=== PATIENT | female | born 1980 | race Caucasian/White ===

== ENCOUNTER 2016-10-01 15:51 | Emergency (ER) | payer OTHER ==
[~2016-10-01] VITALS: Ht 175.3 cm; Wt 70.5 kg
[~2016-10-01 15:51] MED LIST: CLIN150 PO
[2016-10-01 15:59] VITALS: BP 101/64; PULSE 80; RESP 16; TEMP 98.4; O2SAT 97
--- NOTE | 2016-10-01 17:02 | PD ---
HPI Chief Complaint: Injury Time Seen by Provider: 17:02 Travel History International Travel<30 days: No Contact w/Intl Traveler<30days: No Traveled to known affect area: No History of Present Illness HPI 35-year-old female presents to the emergency department for evaluation of bilateral ankle swelling and pain that started 1 week ago. Patient reports history of IV drug use, but states she is not currently using. She states that she smokes crack cocaine. The patient denies any fevers or chills. No chest pain or shortness of breath. She states she was admitted in April for endocarditis. She states she last used IV drugs in July before going to correction. The patient states that she is homeless. She states that the swelling does improve when she elevates her legs. Patient states she is not currently on any medications. PFSH Past Medical History Hx Anticoagulant Therapy: No (WAS WHEN ADMITTED, NOW RESOLVED.) Bipolar Disorder: Yes Anxiety: Yes Depression: Yes Cancer: No Cardiovascular Problems: Yes (ADMIT FOR ENDOCARDITIS) Chemotherapy: No Cerebrovascular Accident: No Diabetes: No Diminished Hearing: No Endocrine: No Hepatitis: Yes Immune Disorder: No Psychiatric: Yes Respiratory: Yes (SMOKER DAILY, CRACK. ) Immunizations Current: Yes Myocardial Infarction: No Tetanus Vaccination: > 5 Years ?: Not LMP: 3 YEARS Menopausal: No : 4 Para: 3 Miscarriage: 0 : 0 Past Surgical History Surgical History: No Previous Surgery Hysterectomy: No Social History Alcohol Use: No Tobacco Use: Yes (1 PPD) Substance Use: Yes (crack) Allergies-Medications (Allergen,Severity, Reaction): Coded Allergies: Latex (Verified Allergy, Severe, LIGHT RASH, 10/01/16) Naproxen (Verified Allergy, Severe, PT SAYS RAULITO GILLIS - NURSE ASKED 08/19 0845, 10/01/16) Bactrim (Verified Allergy, Intermediate, SWOLLEN LIPS, 10/01/16) Reported Meds & Prescriptions Reported Meds & Active Scripts Active No Active Prescriptions or Reported Medications Review of Systems Except as stated in HPI: all other systems reviewed are Neg Physical Exam Narrative GENERAL: Unkempt female patient, afebrile. SKIN: Focused skin assessment warm/dry. Patient has sores to her face and abdomen. She has an area of erythema to her left dorsal hand with swelling noted. HEAD: Normocephalic. Atraumatic. EYES: No scleral icterus. No injection or drainage. NECK: Supple, trachea midline. No JVD or lymphadenopathy. CARDIOVASCULAR: Regular rate and rhythm without murmurs, gallops, or rubs. Lateral pedal and radial pulses 2+. RESPIRATORY: Breath sounds equal bilaterally. No accessory muscle use. Lungs sounds are clear to auscultation. GASTROINTESTINAL: Abdomen soft, non-tender, nondistended. MUSCULOSKELETAL: No cyanosis, or edema. . Bilateral lower extremity edema 2+. She has full range of motion of her bilateral ankles, but pain with movement. There is no erythema over bilateral ankles. Capillary refill less than 2 seconds to the digits of the bilateral feet. BACK: Nontender without obvious deformity. No CVA tenderness. Data Data Last Documented VS Vital Signs Date Time Temp Pulse Resp B/P Pulse Ox O2 Delivery O2 Flow Rate FiO2 10/01/16 15:59 98.4 80 16 101/64 97 Orders Iv Access Insert/Monitor (10/01/16 16:59) Complete Blood Count With Diff (10/01/16 16:59) Comprehensive Metabolic Panel (10/01/16 16:59) Urinalysis - C+S If Indicated (10/01/16 16:59) Ed Urine Pregnancytest Poc (10/01/16 16:59) B-Type Natriuretic Peptide (10/01/16 16:59) Drug Screen, Random Urine (10/01/16 16:59) Us Leg Venous Doppler Bilat (10/01/16 ) Creatine Kinase (Cpk) (10/01/16 16:59) MDM Medical Decision Making Medical Screen Exam Complete: Yes Emergency Medical Condition: Yes Medical Record Reviewed: Yes Differential Diagnosis Cellulitis versus DVT versus IV drug use versus idiopathic edema versus CHF Narrative Course 35-year-old female history of IV drug use presents to the emergency department for evaluation of bilateral ankle pain and swelling for 1 week. On exam, the patient has sores to her face and abdomen as well as erythema and swelling to the left dorsal hand. She has no erythema to the bilateral ankles, but has 2+ edema in pain with movement. Patient does have track gardiner noted to the bilateral arms. CBC, CMP, BNP, UA, urine drug screen, CK are ordered and pending. Venous Doppler ultrasound of bilateral extremities are ordered and pending. Before labs or imaging could be completed, the patient left AGAINST MEDICAL ADVICE. AMA: The risks of leaving against medical advice without further evaluation treatment were discussed with the patient. These risks include cardiac dysfunction, cardiac dysrhythmia, possible heart attack, possible stroke or . The patient indicated understanding of these risks and appeared to have the capacity to make this decision. Diagnosis Primary Impression: Left against medical advice Additional Impression: Bilateral lower extremity edema Scripts No Active Prescriptions or Reported Meds Disposition: 07 AGAINST MEDICAL ADVICE Xiomara Morris Oct 01, 2016 17:02
== END 2016-10-01 17:25 | disposition left against medical advice (07) ==
LOC: NEPD 15:51
DX: R22.43 Localized swelling, mass and lump, lower limb, bilateral (principal); F17.210 Nicotine dependence, cigarettes, uncomplicated; F14.90 Cocaine use, unspecified, uncomplicated; Z59.0 Homelessness

== ENCOUNTER 2016-10-15 16:55 | Emergency (ER) | payer OTHER ==
[~2016-10-15] VITALS: Ht 175.3 cm; Wt 75.0 kg
[2016-10-15 17:04] VITALS: BP 129/81; PULSE 124; RESP 20; TEMP 98; O2SAT 89
--- NOTE | 2016-10-15 17:41 | PD ---
HPI Chief Complaint: Alcohol/Drug Intoxication Time Seen by Provider: 17:04 Travel History International Travel<30 days: No Contact w/Intl Traveler<30days: No Traveled to known affect area: No History of Present Illness HPI 35-year-old female was brought in by EMS after patient was found unresponsive by a friend. EMS was called. A friend was doing chest compressions when EMS personnel got to the scene. GCS at the scene was 3. Patient has history of IV drug abuse including opiates. Narcan 2 mg IM given at the scene by EMS. Patient regained consciousness subsequently. Patient was transported to the ED for evaluation. Patient states that she has mild aching headache. Patient denies any visual change. Patient denies any neck pain. Patient denies any chest pain or shortness of breath. Patient denies abdominal pain. Patient denies any focal weakness or numbness of extremity. PFSH Past Medical History Hx Anticoagulant Therapy: No (WAS WHEN ADMITTED, NOW RESOLVED.) Bipolar Disorder: Yes Anxiety: Yes Depression: Yes Cancer: No Cardiovascular Problems: Yes (ADMIT FOR ENDOCARDITIS) Chemotherapy: No Cerebrovascular Accident: No Diabetes: No Diminished Hearing: No Endocrine: No Hepatitis: Yes Immune Disorder: No Psychiatric: Yes Respiratory: Yes (SMOKER DAILY, CRACK. ) Immunizations Current: Yes Myocardial Infarction: No Menopausal: No : 4 Para: 3 Miscarriage: 0 : 0 Past Surgical History Hysterectomy: No Social History Alcohol Use: No Tobacco Use: Yes (1 PPD) Substance Use: Yes (crack) Allergies-Medications (Allergen,Severity, Reaction): Coded Allergies: Latex (Verified Allergy, Severe, LIGHT RASH, 10/01/16) Naproxen (Verified Allergy, Severe, PT SAYS RAULITO GILLIS - NURSE ASKED 08/19 0845, 10/01/16) Bactrim (Verified Allergy, Intermediate, SWOLLEN LIPS, 10/01/16) Reported Meds & Prescriptions Reported Meds & Active Scripts Active No Active Prescriptions or Reported Medications Review of Systems General / Constitutional: No: Fever Eyes: No: Visual changes HENT: No: Headaches Cardiovascular: No: Chest Pain or Discomfort Respiratory: No: Shortness of Breath Gastrointestinal: No: Abdominal Pain Genitourinary: No: Dysuria Musculoskeletal: No: Pain Skin: No Rash Neurologic: No: Weakness Psychiatric: No: Depression Endocrine: No: Polydipsia Hematologic/Lymphatic: No: Easy Bruising Physical Exam Narrative GENERAL: Well-nourished, well-developed patient. SKIN: Focused skin assessment warm/dry. HEAD: Normocephalic. EYES: No scleral icterus. No injection or drainage. Pupils 2 mm equal reactive. NECK: Supple, trachea midline. No JVD or lymphadenopathy. No meningismus CARDIOVASCULAR: Regular rate and rhythm without murmurs, gallops, or rubs. RESPIRATORY: Breath sounds equal bilaterally. No accessory muscle use. GASTROINTESTINAL: Abdomen soft, non-tender, nondistended. MUSCULOSKELETAL: No cyanosis, or edema. BACK: Nontender without obvious deformity. No CVA tenderness. Neurologic exam: Patient's awake and alert oriented 3. No obvious focal neurological deficit. Data Data Last Documented VS Vital Signs Date Time Temp Pulse Resp B/P Pulse Ox O2 Delivery O2 Flow Rate FiO2 10/15/16 17:04 98.0 124 20 129/81 89 Orders Electrocardiogram (10/15/16 17:05) Complete Blood Count With Diff (10/15/16 17:05) Comprehensive Metabolic Panel (10/15/16 17:05) Creatine Kinase (Cpk) (10/15/16 17:05) Troponin I (10/15/16 17:05) Prothrombin Time / Inr (Pt) (10/15/16 17:05) Act Partial Throm Time (Ptt) (10/15/16 17:05) Urinalysis - C+S If Indicated (10/15/16 17:05) Iv Access Insert/Monitor (10/15/16 17:05) Ecg Monitoring (10/15/16 17:05) Oximetry (10/15/16 17:05) Drug Screen, Random Urine (10/15/16 17:05) Alcohol (Ethanol) (10/15/16 17:05) MDM Medical Decision Making Medical Screen Exam Complete: Yes Emergency Medical Condition: Yes Differential Diagnosis Differential diagnosis including drug overdose, electrolytes abnormality, TIA, CVA, arrhythmia. Narrative Course 35-year-old female was found unresponsive by a friend. Patient responded to Narcan given by EMS. Patient's awake alert oriented 3 now. Patient refused treatment and wants to leave. Diagnosis Primary Impression: Drug overdose Qualified Code: T50.904A - Drug overdose, undetermined intent, initial encounter Patient Instructions: General Instructions Additional Instructions: Patient refused treatment. Patient wants to leave AMA. Med/Other Pt SpecificInfo: No Meds Exist/No RX given Scripts No Active Prescriptions or Reported Meds Disposition: 07 AGAINST MEDICAL ADVICE Condition: Serious Jayme Johnson MD October 15, 2016 17:41
[2016-10-15 18:00] VITALS: BP 122/85; PULSE 111; RESP 20; O2SAT 92
== END 2016-10-15 18:10 | disposition left against medical advice (07) ==
LOC: NEPC 16:55
DX: T50.904A Poisoning by unspecified drugs, medicaments and biological substances, undetermined, initial encounter (principal); R51 Headache
CPT/HCPCS: 99285

== ENCOUNTER 2017-01-19 21:08 | Inpatient (IN) | payer SELFPAY ==
[~2017-01-19] VITALS: Ht 165.1 cm; Wt 60.0 kg
[2017-01-19 21:09] VITALS: BP 112/73; PULSE 87; RESP 20; TEMP 97.6; O2SAT 98
--- NOTE | 2017-01-19 22:23 | PD ---
Physical Exam Date Seen by Provider: Jan 19, 2017 Time Seen by Provider: 22:21 Narrative 36 y/o IVDU female presents with Pain, Swelling and erythema to both hands and forearms over the past week. + Fevers off and on. Pain is 10/10. Patient admits to injecting Crack. Vital signs reviewed. Patient stable. Awaiting Bed placement. Data Data Last Documented VS Vital Signs Date Time Temp Pulse Resp B/P Pulse Ox O2 Delivery O2 Flow Rate FiO2 01/19/17 21:09 97.6 87 20 112/73 98 Room Air [facility] Medical Record Reviewed: Yes Supervised Visit with SHANNON: Yes Scripts No Active Prescriptions or Reported Meds Condition: Stable Yaya Antoine Jan 19, 2017 22:23
[2017-01-19 23:34] VITALS: BP 136/69; PULSE 85; RESP 18; O2SAT 99
[2017-01-19] MEDS ORDERED: SODIUM CHLOR 0.9% 1000 ML INJ 1,000 ML IV ONE (23:45)
[2017-01-19] MEDS ORDERED: ONDANSETRON HCL 4 MG/2 ML VIAL IV ONE (23:45)
[2017-01-19] MEDS ORDERED: MORPHINE SULFATE 4 MG/ML INJ IV PUSH ONE (23:45)
[2017-01-19 23:47] VITALS: O2SAT 99
--- NOTE | 2017-01-19 23:55 | PD ---
HPI Chief Complaint: Skin Problem Time Seen by Provider: 23:41 Travel History International Travel<30 days: No Contact w/Intl Traveler<30days: No Traveled to known affect area: No History of Present Illness HPI The patient is a 36 year old female who presents to the [facility] emergency department with a history of reportedly developing an abscess on the right hand approximately a week ago. She reports that she has had problems with skin infections in the past. The patient reports a history of polysubstance abuse. She reports that she does inject crack cocaine. The patient denies being evaluated for this hand infection previously. The patient is also noted on arrival to have an area of swelling and redness to the left forearm. The patient reports that she has injected at both sites. She denies breaking the needle. She reports that she's had a subjective fever. She denies having any nausea or vomiting. She does report having chronic diarrhea is been no worse than usual. She reports that she normally moves her bowels twice per day. The patient incidentally on review of systems also reports that she's had incontinence for the last few months. She denies having any back pain , weakness of her extremities, numbness or tingling of her extremities. On review of systems, she denies any recent worsening cough or congestion, neck pain, chest pain, shortness of breath, abdominal pain, or neurologic symptoms. She reports that her last bowel movement was earlier today.LMP: A few months ago. She reports that her cycles are regular. [facility] Past Medical History Narrative Medical The patient's past medical history is significant for polysubstance abuse, IV drug use, history of skin infections. Hx Anticoagulant Therapy: No (WAS WHEN ADMITTED, NOW RESOLVED.) Bipolar Disorder: Yes Anxiety: Yes Depression: Yes Cancer: No Cardiovascular Problems: Yes (ADMIT FOR ENDOCARDITIS) Chemotherapy: No Cerebrovascular Accident: No Diabetes: No Diminished Hearing: No Endocrine: No Hepatitis: Yes Immune Disorder: No Psychiatric: Yes Respiratory: Yes (SMOKER DAILY, CRACK. ) Immunizations Current: Yes Myocardial Infarction: No Tetanus Vaccination: > 5 Years Influenza Vaccination: No ?: Not LMP: 3 YEARS AGO Menopausal: No : 4 Para: 3 Miscarriage: 0 : 0 Past Surgical History Narrative Surgical The patient's past surgical history is reportedly none. Surgical History: No Previous Surgery Hysterectomy: No Social History Alcohol Use: No Tobacco Use: Yes (1 PPD) Substance Use: Yes (crack, HEROIN) Allergies-Medications (Allergen,Severity, Reaction): Coded Allergies: Latex (Verified Allergy, Severe, LIGHT RASH, 01/19/17) Naproxen (Verified Allergy, Severe, PT SAYS RAULITO GILLIS - NURSE ASKED 08/19 0845, 01/19/17) Bactrim (Verified Allergy, Intermediate, SWOLLEN LIPS, 01/19/17) *MDRO Multi-Drug Resistant Organism (Verified Adverse Reaction, Unknown, ) NRSA Wounds 07/10/05, , 08/04/10 Reported Meds & Prescriptions Reported Meds & Active Scripts Active No Active Prescriptions or Reported Medications Review of Systems Except as stated in HPI: all other systems reviewed are Neg General / Constitutional: Positive: Fever Eyes: No: Visual changes HENT: No: Headaches Cardiovascular: No: Chest Pain or Discomfort Respiratory: No: Shortness of Breath Gastrointestinal: No: Abdominal Pain Genitourinary: No: Dysuria Musculoskeletal: Positive: Myalgias, Limited ROM, Edema, Pain Skin: No Rash Neurologic: No: Weakness, Focal Abnormalities, Change in Mentation, Slurred Speech Psychiatric: No: Depression Endocrine: No: Polydipsia Hematologic/Lymphatic: No: Easy Bruising Physical Exam Narrative General: The patient is a well-developed well-nourished female who is uncomfortable appearing on arrival. The patient is writhing around the bed reporting severe right hand pain. Head and Neck exam: Head is normocephalic atraumatic. Eyes: EOMI, pupils are equal round and reactive to light. Nose: Midline septum with pink mucous membranes Mouth: Dentition unremarkable. Moist mucus membranes. Posterior oropharynx is not erythematous. No tonsillar hypertrophy. Uvula midline. Airway patent. Neck: No palpable lymphadenopathy. No nuchal rigidity. No thyromegaly. Cardiovascular: Regular rate and rhythm without murmurs, gallops, or rubs. No pulse deficit to the extremities and simultaneous auscultation and palpation of her radial artery. Lungs: Clear to auscultation bilaterally. No wheezes, rhonchi, or rales. Abdomen: Soft, with suprapubic abdominal discomfort on palpation with prominence noted, no other tenderness on palpation of the other quadrants of the abdomen. No guarding, rebound, or rigidity. No tenderness on palpation of McBurney's point. Negative Madison's sign. Extremities: No clubbing, cyanosis, or edema. 2+ pulses in all 4 extremities. tenderness on palpation. On examination of the 2 areas of interest, the right hand has swelling and redness noted over the dorsum of the hand with fluctuance noted. On examination of the patient's left forearm along the ventral aspect, ulnar side the patient is noted to have erythema, edema, tenderness on palpation with fluctuance. No pointing or crepitus. Back: No spinous process tenderness to palpation. No costovertebral angle tenderness to palpation. Neurologic Exam: Grossly nonfocal. Skin Exam: No rash noted. Intact skin that is warm and dry. Data Data Last Documented VS Vital Signs Date Time Temp Pulse Resp B/P Pulse Ox O2 Delivery O2 Flow Rate FiO2 01/19/17 23:47 99 Room Air 01/19/17 23:34 85 18 136/69 01/19/17 21:09 97.6 Orders Electrocardiogram (01/19/17 23:43) Complete Blood Count With Diff (01/19/17 23:43) Comprehensive Metabolic Panel (01/19/17 23:43) Troponin I (01/19/17 23:43) Prothrombin Time / Inr (Pt) (01/19/17 23:43) Act Partial Throm Time (Ptt) (01/19/17 23:43) Blood Culture (01/19/17 23:43) C-Reactive Protein (Crp) (01/19/17 23:43) Lipase (01/19/17 23:43) Urinalysis - C+S If Indicated (01/19/17 23:43) Westergren Sedimentation Rate (01/19/17 23:43) Magnesium (Mg) (01/19/17 23:43) Chest, Single Ap (01/19/17 23:43) Iv Access Insert/Monitor (01/19/17 23:43) Ecg Monitoring (01/19/17 23:43) Oximetry (01/19/17 23:43) Ed Urine Pregnancytest Poc (01/19/17 23:43) Drug Screen, Random Urine (01/19/17 23:43) Alcohol (Ethanol) (01/19/17 23:43) Salicylates (Aspirin) (01/19/17 23:43) Tylenol (Acetaminophen) (01/19/17 23:43) Lactic Acid Sepsis Protocol (01/19/17 23:43) Sodium Chlor 0.9% 1000 Ml Inj (Ns 1000 M (01/19/17 23:45) Ondansetron Inj (Zofran Inj) (01/19/17 23:45) Morphine Inj (Morphine Inj) (01/19/17 23:45) Urinary Catheter Insert/Apply (01/19/17 23:43) Urine Culture (01/19/17 23:30) Piperacil-Tazo 3.375 Gm Premix (Zosyn 3. (01/20/17 01:15) Vancomycin Inj (Vancomycin Inj) (01/20/17:15) Vital Signs (Adult) Q4H (01/20/17 01:07) Activity Oob With Assistance (01/20/17 01:07) Superintendent Pier / Telemetry .CONTINUOUS (01/20/17 01:07) Diet Heart Healthy (01/20/17 Breakfast) Sodium Chloride 0.9% Flush (Ns Flush) (01/20/17 01:15) Sodium Chloride 0.9% Flush (Ns Flush) (01/20/17 09:00) Basic Metabolic Panel (Bmp) (01/21/17 06:00) Complete Blood Count With Diff (01/21/17 06:00) Case Management Consult (01/20/17 01:07) Naloxone Inj (Narcan Inj) (01/20/17 01:15) Wound Culture And Gram Stain (01/20/17 01:08) Wound Culture And Gram Stain (01/20/17 01:08) Lidocai-Epi 1%-1:100,000 Inj (Xylocaine- (01/20/17 01:15) Admit Order (Ed Use Only) (01/20/17 01:15) Labs Laboratory Tests Test 01/19/17 23:30 White Blood Count 4.8 TH/MM3 Red Blood Count 3.73 MIL/MM3 Hemoglobin 10.4 GM/DL Hematocrit 30.9 % Mean Corpuscular Volume 82.9 FL Mean Corpuscular Hemoglobin 27.8 PG Mean Corpuscular Hemoglobin 33.5 % Concent Red Cell Distribution Width 15.3 % Platelet Count 255 TH/MM3 Mean Platelet Volume 10.0 FL Neutrophils (%) (Auto) 72.0 % Lymphocytes (%) (Auto) 16.7 % Monocytes (%) (Auto) 8.6 % Eosinophils (%) (Auto) 1.9 % Basophils (%) (Auto) 0.8 % Neutrophils # (Auto) 3.5 TH/MM3 Lymphocytes # (Auto) 0.8 TH/MM3 Monocytes # (Auto) 0.4 TH/MM3 Eosinophils # (Auto) 0.1 TH/MM3 Basophils # (Auto) 0.0 TH/MM3 CBC Comment DIFF FINAL Differential Comment Erythrocyte Sedimentation Rate 72 mm/hr Prothrombin Time 11.3 SEC Prothromb Time International 1.0 RATIO Ratio Activated Partial 29.4 SEC Thromboplast Time Urine Color YELLOW Urine Turbidity HAZY Urine pH 6.0 Urine Specific [place] 1.021 Urine Protein TRACE mg/dL Urine Glucose (UA) NEG mg/dL Urine Ketones NEG mg/dL Urine Occult Blood NEG Urine Nitrite NEG Urine Bilirubin NEG Urine Urobilinogen LESS THAN 2.0 MG/DL Urine Leukocyte Esterase MOD Urine RBC 3 /hpf Urine WBC 20 /hpf Urine Squamous Epithelial <1 /hpf Cells Urine Bacteria RARE /hpf Urine Hyaline Casts 2 /lpf Urine Mucus FEW /lpf Microscopic Urinalysis Comment CULTURE INDICATED Sodium Level 139 MEQ/L Potassium Level 4.5 MEQ/L Chloride Level 107 MEQ/L Carbon Dioxide Level 26.6 MEQ/L Anion Gap 5 MEQ/L Blood Urea Nitrogen 13 MG/DL Creatinine 0.77 MG/DL Estimat Glomerular Filtration 85 ML/MIN Rate Random Glucose 83 MG/DL Lactic Acid Level 1.3 mmol/L Calcium Level 8.7 MG/DL Magnesium Level 2.2 MG/DL Total Bilirubin 0.2 MG/DL Aspartate Amino Transf 10 U/L (AST/SGOT) Alanine Aminotransferase 12 U/L (ALT/SGPT) Alkaline Phosphatase 81 U/L Troponin I LESS THAN 0.02 NG/ML C-Reactive Protein 4.80 MG/DL Total Protein 7.6 GM/DL Albumin 2.9 GM/DL Lipase 127 U/L Salicylates Level 2.4 MG/DL Urine Opiates Screen POS Acetaminophen Level LESS THAN 2.0 MCG/ML Urine Barbiturates Screen NEG Urine Amphetamines Screen POS Urine Benzodiazepines Screen NEG Urine Cocaine Screen POS Urine Cannabinoids Screen NEG Ethyl Alcohol Level LESS THAN 3 MG/DL MDM Medical Decision Making Medical Screen Exam Complete: Yes Emergency Medical Condition: Yes Medical Record Reviewed: Yes Interpretation(s) Last Impressions Chest X-Ray 01/19/17 2343 Signed Impressions: Service Date/Time: Thursday, January 19, 2017 23:47 - CONCLUSION: No acute disease. Abhijeet Ware MD Differential Diagnosis Sepsis related to skin infection, versus cellulitis, versus cellulitis with abscess formation, versus endocarditis Narrative Course During the course of the patients emergency department visit, the patients history, examination, and differential diagnosis were reviewed with the patient. The patient had IV access obtained and blood work sent for analysis. The patient was placed on a panel monitor with oximetry and blood pressure monitoring. The patient was initially provided morphine for pain, Zofran for nausea. The patient was given normal saline 1 L IV fluid bolus. The patient was given Zosyn 3.375 g IV, vancomycin 1 g IV. The patients laboratory studies were reviewed and remarkable for a white count 4.8, hemoglobin 10.4, platelets 255 with a neutrophil percent at 72, CMP is remarkable for a GFR of 85, AST is 10, troponin I is less than 0.02, C-reactive protein 4.8, albumin 2.9, lipase 127, lactic acid 1.3, PT 11.3, INR 1.0, PTT 29.4, urine drug screen is positive for opiates, amphetamines, cocaine, salicylate is 2.4, acetaminophen less than 2, alcohol level less than 3. Urinalysis shows moderate leukocyte esterase 20 wbc's, rare bacteria culture indicated. Radiology studies were reviewed and remarkable for a chest x-ray that shows no acute cardiopulmonary disease. The patients results were discussed with the patient, including the plan of care. I explained that further testing and/ or monitoring is indicated based on the patients history, examination, and/ or laboratory findings. Therefore, I recommended admission for additional evaluation. The patient expressed understanding and was agreeable with this plan. The patient was admitted to the hospital in guarded condition and sent to a bed under the care of the [facility] Hospitalist service per Diagnosis Primary Impression: Cellulitis and abscess of hand Additional Impression: Left arm cellulitis Scripts No Active Prescriptions or Reported Meds Condition: Virginia Gee MD Jan 19, 2017 23:55
[2017-01-20] VITALS (7 sets, daily range): BP systolic 129–141; BP diastolic 68–81; PULSE 72–88; RESP 16–20; TEMP 97.7–98.6; O2SAT 96–98
[2017-01-20 00:11] LABS: AUTOMATED NEUTROPHIL # 3.5 TH/MM3 (1.8-7.7); BASOPHIL % 0.8 % (0.0-2.0); EOSINOPHIL # 0.1 TH/MM3 (0-0.4); EOSINOPHIL % 1.9 % (0.0-4.0); HEMATOCRIT 30.9 % (35.0-46.0); HEMO FLAGS DIFF FINAL; LYMPH % 16.7 % (9.0-44.0); LYMPHOCYTE # 0.8 TH/MM3 (1.0-4.8); MEAN CELL VOLUME 82.9 FL (80.0-100.0); MEAN CORPUSCULAR HEMOGLOBIN 27.8 PG (27.0-34.0); MEAN CORPUSCULAR HGB CONC 33.5 % (32.0-36.0); MONO % 8.6 % (0.0-8.0); PLATELET COUNT 255 TH/MM3 (150-450); RED BLOOD COUNT 3.73 MIL/MM3 (4.00-5.30); RED CELL DISTRIBUTION WIDTH 15.3 % (11.6-17.2); WHITE BLOOD COUNT 4.8 TH/MM3 (4.0-11.0)
[2017-01-20 00:14] LABS: AMPHETAMINE, URINE POS (NEG); BARBITURATES, URINE NEG (NEG); COCAINE, URINE POS (NEG)
--- NOTE | 2017-01-20 00:15 | RADRPT ---
EXAM DATE/TIME: 01/19/2017 23:47 [facility] COMPARISON: CHEST SINGLE AP, March 11, 2015, 18:55. INDICATIONS : Cough. Right hand swelling. Patient states swelling is from injecting IV drugs. MEDICAL HISTORY : None. SURGICAL HISTORY : None. ENCOUNTER: Initial ACUITY: 1 week PAIN SCORE: 0/10 LOCATION: Bilateral chest FINDINGS: A single view of the chest demonstrates the lungs to be symmetrically aerated without evidence of mas s, infiltrate or effusion. The cardiomediastinal contours are unremarkable. Osseous structures are intact. CONCLUSION: No acute disease. Abhijeet Ware MD on January 20, 2017 at 0:14 Board Certified Radiologist. This report was verified electronically.
[2017-01-20 00:17] LABS: BACTERIA, URINE RARE /hpf; BLOOD, URINE NEG (NEG); COMMENT (UR) CULTURE INDICATED; CULTURE IF INDICATED CULTURE INDICATED; GLUCOSE,URINE NEG (NEG); HYALINE CAST, URINE 2 /lpf (RARE); KETONE, URINE NEG (NEG); MUCUS URINE FEW /lpf (OCC); NITRITE,URINE NEG (NEG); SQUAMOUS EPITHELIAL CELL URINE <1 /hpf (0-5); URINE COLOR YELLOW (YELLW/STRAW)
[2017-01-20 00:20] LABS: APTT (PATIENT) 29.4 SEC (24.3-30.1); PROTHROMBIN TIME - PATIENT 11.3 SEC (9.8-11.6)
[2017-01-20 00:32] LABS: ALT (GPT) 12 U/L (10-53); ANION GAP 5 MEQ/L (5-15); AST (GOT) 10 U/L (15-37); BICARBONATE 26.6 MEQ/L (21.0-32.0); BLOOD UREA NITROGEN 13 MG/DL (7-18); CHLORIDE 107 MEQ/L (98-107); GLOMERULAR FILTRATION RATE 85 ML/MIN (>89); MAGNESIUM 2.2 MG/DL (1.5-2.5); POTASSIUM 4.5 MEQ/L (3.5-5.1); SODIUM (NA) 139 MEQ/L (136-145)
[2017-01-20 00:35] LABS: ALKALINE PHOSPHATASE 81 U/L (45-117); TOTAL BILIRUBIN ADULT 0.2 MG/DL (0.2-1.0)
[2017-01-20 00:41] LABS: ACETAMINOPHEN LESS THAN 2.0 MCG/ML (10.0-30.0)
[2017-01-20] MEDS ORDERED: LIDOCAINE 1%/EPINEPHrine 1:100,000 SOLN 20 ML VIAL INFIL ONE (01:15)
[2017-01-20] MEDS ORDERED: NALOXONE HCL 0.4 MG/ML AMP IV PRN (01:15)
[2017-01-20] MEDS ORDERED: SODIUM CHLORIDE 0.9% FLUSH 10 ML FLUSH IV FLUSH PRN (01:15)
[2017-01-20] MEDS ORDERED: VANCOMYCIN INJ 1,000 MG in SODIUM CHLOR 0.9% 250 ML INJ 250 ML IV ONE (01:15)
[2017-01-20] MEDS ORDERED: PIPERACIL-TAZO 3.375 GM PREMIX 50 ML IV ONE (01:15)
[2017-01-20] MEDS ORDERED: LIDOCAINE 1%/EPINEPHrine 1:100,000 SOLN 30 ML VIAL ONE (01:19)
[2017-01-20] MEDS ORDERED: MORPHINE SULFATE 4 MG/ML INJ IV PUSH ONE (01:45)
[2017-01-20] MEDS ORDERED: ONDANSETRON HCL 4 MG/2 ML VIAL IV PUSH ONE (01:45)
--- NOTE | 2017-01-20 01:58 | PD ---
Physical Exam Date Seen by Provider: Jan 20, 2017 Time Seen by Provider: 01:54 Narrative Skin: Patient has a large abscess to her dorsum of the right hand. The area is fluctuant and pointing. The patient has a second abscess involving the volar surface of the left distal forearm. This too is fluctuant and pointing. Data Data Last Documented VS Vital Signs Date Time Temp Pulse Resp B/P Pulse Ox O2 Delivery O2 Flow Rate FiO2 01/19/17 23:47 99 Room Air 01/19/17 23:34 85 18 136/69 01/19/17 21:09 97.6 Orders Electrocardiogram (01/19/17 23:43) Complete Blood Count With Diff (01/19/17 23:43) Comprehensive Metabolic Panel (01/19/17 23:43) Troponin I (01/19/17 23:43) Prothrombin Time / Inr (Pt) (01/19/17 23:43) Act Partial Throm Time (Ptt) (01/19/17 23:43) Blood Culture (01/19/17 23:43) C-Reactive Protein (Crp) (01/19/17 23:43) Lipase (01/19/17 23:43) Urinalysis - C+S If Indicated (01/19/17 23:43) Westergren Sedimentation Rate (01/19/17 23:43) Magnesium (Mg) (01/19/17 23:43) Chest, Single Ap (01/19/17 23:43) Iv Access Insert/Monitor (01/19/17 23:43) Ecg Monitoring (01/19/17 23:43) Oximetry (01/19/17 23:43) Ed Urine Pregnancytest Poc (01/19/17 23:43) Drug Screen, Random Urine (01/19/17 23:43) Alcohol (Ethanol) (01/19/17 23:43) Salicylates (Aspirin) (01/19/17 23:43) Tylenol (Acetaminophen) (01/19/17 23:43) Lactic Acid Sepsis Protocol (01/19/17 23:43) Sodium Chlor 0.9% 1000 Ml Inj (Ns 1000 M (01/19/17 23:45) Ondansetron Inj (Zofran Inj) (01/19/17 23:45) Morphine Inj (Morphine Inj) (01/19/17 23:45) Urinary Catheter Insert/Apply (01/19/17 23:43) Urine Culture (01/19/17 23:30) Piperacil-Tazo 3.375 Gm Premix (Zosyn 3. (01/20/17 01:15) Vancomycin Inj (Vancomycin Inj) (01/20/17 01:15) Vital Signs (Adult) Q4H (01/20/17 01:07) Activity Oob With Assistance (01/20/17 01:07) Foundry Molder / Telemetry .CONTINUOUS (01/20/17 01:07) Diet Heart Healthy (01/20/17 Breakfast) Sodium Chloride 0.9% Flush (Ns Flush) (01/20/17 01:15) Sodium Chloride 0.9% Flush (Ns Flush) (01/20/17 09:00) Basic Metabolic Panel (Bmp) (01/21/17 06:00) Complete Blood Count With Diff (01/21/17 06:00) Case Management Consult (01/20/17 01:07) Naloxone Inj (Narcan Inj) (01/20/17 01:15) Wound Culture And Gram Stain (01/20/17 01:08) Wound Culture And Gram Stain (01/20/17 01:08) Lidocai-Epi 1%-1:100,000 Inj (Xylocaine- (01/20/17 01:15) Admit Order (Ed Use Only) (01/20/17 01:15) Labs Laboratory Tests Test 01/19/17 23:30 White Blood Count 4.8 TH/MM3 Red Blood Count 3.73 MIL/MM3 Hemoglobin 10.4 GM/DL Hematocrit 30.9 % Mean Corpuscular Volume 82.9 FL Mean Corpuscular Hemoglobin 27.8 PG Mean Corpuscular Hemoglobin 33.5 % Concent Red Cell Distribution Width 15.3 % Platelet Count 255 TH/MM3 Mean Platelet Volume 10.0 FL Neutrophils (%) (Auto) 72.0 % Lymphocytes (%) (Auto) 16.7 % Monocytes (%) (Auto) 8.6 % Eosinophils (%) (Auto) 1.9 % Basophils (%) (Auto) 0.8 % Neutrophils # (Auto) 3.5 TH/MM3 Lymphocytes # (Auto) 0.8 TH/MM3 Monocytes # (Auto) 0.4 TH/MM3 Eosinophils # (Auto) 0.1 TH/MM3 Basophils # (Auto) 0.0 TH/MM3 CBC Comment DIFF FINAL Differential Comment Erythrocyte Sedimentation Rate 72 mm/hr Prothrombin Time 11.3 SEC Prothromb Time International 1.0 RATIO Ratio Activated Partial 29.4 SEC Thromboplast Time Urine Color YELLOW Urine Turbidity HAZY Urine pH 6.0 Urine Specific [place] 1.021 Urine Protein TRACE mg/dL Urine Glucose (UA) NEG mg/dL Urine Ketones NEG mg/dL Urine Occult Blood NEG Urine Nitrite NEG Urine Bilirubin NEG Urine Urobilinogen LESS THAN 2.0 MG/DL Urine Leukocyte Esterase MOD Urine RBC 3 /hpf Urine WBC 20 /hpf Urine Squamous Epithelial <1 /hpf Cells Urine Bacteria RARE /hpf Urine Hyaline Casts 2 /lpf Urine Mucus FEW /lpf Microscopic Urinalysis Comment CULTURE INDICATED Sodium Level 139 MEQ/L Potassium Level 4.5 MEQ/L Chloride Level 107 MEQ/L Carbon Dioxide Level 26.6 MEQ/L Anion Gap 5 MEQ/L Blood Urea Nitrogen 13 MG/DL Creatinine 0.77 MG/DL Estimat Glomerular Filtration 85 ML/MIN Rate Random Glucose 83 MG/DL Lactic Acid Level 1.3 mmol/L Calcium Level 8.7 MG/DL Magnesium Level 2.2 MG/DL Total Bilirubin 0.2 MG/DL Aspartate Amino Transf 10 U/L (AST/SGOT) Alanine Aminotransferase 12 U/L (ALT/SGPT) Alkaline Phosphatase 81 U/L Troponin I LESS THAN 0.02 NG/ML C-Reactive Protein 4.80 MG/DL Total Protein 7.6 GM/DL Albumin 2.9 GM/DL Lipase 127 U/L Salicylates Level 2.4 MG/DL Urine Opiates Screen POS Acetaminophen Level LESS THAN 2.0 MCG/ML Urine Barbiturates Screen NEG Urine Amphetamines Screen POS Urine Benzodiazepines Screen NEG Urine Cocaine Screen POS Urine Cannabinoids Screen NEG Ethyl Alcohol Level LESS THAN 3 MG/DL MDM Medical Record Reviewed: Yes Supervised Visit with SHANNON: Yes Interpretation(s) CBC & BMP Diagram 01/19/17 23:30 Differential Diagnosis MDM: High Differential diagnoses: Abscess, folliculitis, cellulitis, lymphangitis, abrasion, contact dermatitis Narrative Course An incision and drainage has been performed on the right hand and left forearm. Procedures Procedure Narrative I&D abscess: Dorsum of the right hand After the risks and benefits were discussed the following procedure was performed. The skin is prepped and draped in the usual sterile fashion using Betadine. The abscess is anesthetized with 1% lidocaine with epinephrine. After adequate anesthesia, an 11 blade scalpel is used to make a 3 centimeter central incision. Perulant material is expressed and cultured. Loculations are broken up using curved Maggy forceps. The wound is cleansed deeply using dilute Betadine and peroxide on Q-tips. The wound is packed open using iodoform gauze. A clean dressing is applied. The patient tolerated the procedure well. There was no complications. Follow-up instructions were given to the patient. I&D abscess: Left volar distal forearm After the risks and benefits were discussed the following procedure was performed. The skin is prepped and draped in the usual sterile fashion using Betadine. The abscess is anesthetized with 1% lidocaine with epinephrine. After adequate anesthesia, an 11 blade scalpel is used to make a 2 centimeter central incision. Perulant material is expressed and cultured. Loculations are broken up using curved Maggy forceps. The wound is cleansed deeply using dilute Betadine and peroxide on Q-tips. The wound is packed open using iodoform gauze. A clean dressing is applied. The patient tolerated the procedure well. There was no complications. Follow-up instructions were given to the patient. Admitting Information Admitting Physician Requests: Admit Scripts No Active Prescriptions or Reported Meds Condition: Dev Delgado Jan 20, 2017 01:58
--- NOTE | 2017-01-20 05:34 | HHI.HP ---
HPI Service [place] [facility] Primary Care Physician No Primary Care Physician Admission Diagnosis Abscesses with history of IVDU Diagnoses: (1) Abscess of upper extremity (2) IVDU (intravenous drug user) Chief Complaint: swelling/abscesses bilateral forearms Travel History International Travel<30 Days: No Contact w/Intl Traveler <30 Da: No Traveled to Known Affected Are: No History of Present Illness Written by Sidra Jamison, acting as scribe for Dr. Mckinnon on 01/20/17 at 05:34. 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 Past Surgical History Denies . Reported Medications Reported Meds & Active Scripts Active No Active Prescriptions or Reported Medications Allergies: Coded Allergies: Latex (Verified Allergy, Severe, LIGHT RASH, 01/19/17) Naproxen (Verified Allergy, Severe, PT SAYS RAULITO GILLIS - NURSE ASKED 08/19 0845, 01/19/17) Bactrim (Verified Allergy, Intermediate, SWOLLEN LIPS, 01/19/17) *MDRO Multi-Drug Resistant Organism (Verified Adverse Reaction, Unknown, ) NRSA Wounds 07/10/05, , 08/04/10 Active Ordered Medications Current Medications Sodium Chloride (NS 1000 ml Inj) 1,000 ml @ 1,000 mls/hr Q1H ONCE IV Last administered on 01/19/17t 23:50; Start 01/19/17 at 23:45; Stop 01/20/17 at 00:44; Status DC Ondansetron HCl (Zofran Inj) 4 mg ONCE ONCE IV Last administered on 01/19/17 23:50; Start 01/19/17 at 23:45; Stop 01/19/17 at 23:46; Status DC Morphine Sulfate 4 mg 4 mg ONCE ONCE IV PUSH Last administered on 01/19/17 23: 50; Start 01/19/17 at 23:45; Stop 01/19/17 at 23:46; Status DC Piperacillin Sod/ Tazobactam Sod 50 ml @ 100 mls/hr ONCE ONCE IV Last administered on 01/20/17 02:48; Start 01/20/17 at 01:15; Stop 01/20/17 at 01:44; Status DC Vancomycin HCl/ Sodium Chloride (Vancomycin Inj/ NS 250 ml Inj) 250 ml @ 250 mls/hr ONCE ONCE IV Last administered on 01/20/17 03:29; Start 01/20/17 at 01: 15; Stop 01/20/17 at 02:14; Status DC Sodium Chloride (NS Flush) 2 ml UNSCH PRN IV FLUSH FLUSH AFTER USING IV ACCESS ; Start 01/20/17 at 01:15 Sodium Chloride (NS Flush) 2 ml BID IV FLUSH ; Start 01/20/17 at 09:00 Naloxone HCl (Narcan Inj) 0.4 mg UNSCH PRN IV SEE LABEL COMMENTS; Start at 01:15 Lidocaine/ Epinephrine (Xylocaine-Epi 1%-1:100,000 Inj) 10 ml ONCE ONCE INFIL ; Start 01/20/17 at 01:15; Stop 01/20/17 at 01:16; Status DC Lidocaine/ Epinephrine (Xylocaine-Epi 1%-1:100,000 Inj) 30 ml STK-MED ONCE .ROUTE ; Start 01/20/17 at 01:19; Stop 01/20/17 at 01:20; Status DC Morphine Sulfate (Morphine Inj) 4 mg ONCE ONCE IV PUSH Last administered on 01:56; Start 01/20/17 at 01:45; Stop 01/20/17 at 01:46; Status DC Ondansetron HCl (Zofran Inj) 4 mg ONCE ONCE IV PUSH Last administered on 01:57; Start 01/20/17 at 01:45; Stop 01/20/17 at 01:46; Status DC Family History Denies family history . Social History Tobacco: smokes 1 PPD Alcohol: denies alcohol use Illicit Drugs: crack - injection, also smokes - denies using opiates . Physical Exam Vital Signs Vital Signs Date Time Temp Pulse Resp B/P Pulse Ox O2 Delivery O2 Flow Rate FiO2 01/20/17 03:15 98.6 79 20 134/68 98 01/19/17 23:47 99 Room Air 01/19/17 23:34 85 18 136/69 99 Room Air 01/19/17 21:09 97.6 87 20 112/73 98 Room Air Physical Exam GENERAL: This is a thin, chronically-ill appearing female patient who appears much older than her stated age. SKIN: Warm to touch and dry. Multiple small scars noted on legs and arms. HEAD: Atraumatic. Normocephalic. EYES: No scleral icterus. ENT: Nose without bleeding, purulent drainage. NECK: Trachea midline. No JVD or lymphadenopathy. CARDIOVASCULAR: Regular rate and rhythm without murmurs, gallops, or rubs. Murmur in tricuspid area. RESPIRATORY: Clear to auscultation. Breath sounds equal bilaterally. No wheezes , rales, or rhonchi. GASTROINTESTINAL: Abdomen soft, non-tender, nondistended. No guarding. MUSCULOSKELETAL: Extremities without cyanosis. No calf tenderness. NEUROLOGICAL: Somewhat lethargic. Normal speech. . Laboratory Laboratory Tests Test 01/19/17 23:30 White Blood Count 4.8 Red Blood Count 3.73 Hemoglobin 10.4 Hematocrit 30.9 Mean Corpuscular Volume 82.9 Mean Corpuscular Hemoglobin 27.8 Mean Corpuscular Hemoglobin 33.5 Concent Red Cell Distribution Width 15.3 Platelet Count 255 Mean Platelet Volume 10.0 Neutrophils (%) (Auto) 72.0 Lymphocytes (%) (Auto) 16.7 Monocytes (%) (Auto) 8.6 Eosinophils (%) (Auto) 1.9 Basophils (%) (Auto) 0.8 Neutrophils # (Auto) 3.5 Lymphocytes # (Auto) 0.8 Monocytes # (Auto) 0.4 Eosinophils # (Auto) 0.1 Basophils # (Auto) 0.0 CBC Comment DIFF FINAL Differential Comment Erythrocyte Sedimentation Rate 72 Prothrombin Time 11.3 Prothromb Time International 1.0 Ratio Activated Partial 29.4 Thromboplast Time Urine Color YELLOW Urine Turbidity HAZY Urine pH 6.0 Urine Specific [place] 1.021 Urine Protein TRACE Urine Glucose (UA) NEG Urine Ketones NEG Urine Occult Blood NEG Urine Nitrite NEG Urine Bilirubin NEG Urine Urobilinogen LESS THAN 2.0 Urine Leukocyte Esterase MOD Urine RBC 3 Urine WBC 20 Urine Squamous Epithelial <1 Cells Urine Bacteria RARE Urine Hyaline Casts 2 Urine Mucus FEW Microscopic Urinalysis Comment CULTURE INDICATED Sodium Level 139 Potassium Level 4.5 Chloride Level 107 Carbon Dioxide Level 26.6 Anion Gap 5 Blood Urea Nitrogen 13 Creatinine 0.77 Estimat Glomerular Filtration 85 Rate Random Glucose 83 Lactic Acid Level 1.3 Calcium Level 8.7 Magnesium Level 2.2 Total Bilirubin 0.2 Aspartate Amino Transf 10 (AST/SGOT) Alanine Aminotransferase 12 (ALT/SGPT) Alkaline Phosphatase 81 Troponin I LESS THAN 0.02 C-Reactive Protein 4.80 Total Protein 7.6 Albumin 2.9 Lipase 127 Salicylates Level 2.4 Urine Opiates Screen POS Acetaminophen Level LESS THAN 2.0 Urine Barbiturates Screen NEG Urine Amphetamines Screen POS Urine Benzodiazepines Screen NEG Urine Cocaine Screen POS Urine Cannabinoids Screen NEG Ethyl Alcohol Level LESS THAN 3 Date/Time Procedure Status Source Growth 01/20/17 01:38 Gram Stain Received Wound Hand Pending 01/20/17 01:38 Wound Culture Received Wound Hand Pending 01/19/17 23:46 Aerobic Blood Culture Received Blood Peripheral Pending 01/19/17 23:46 Anaerobic Blood Culture Received Blood Peripheral Pending 01/19/17 23:30 Urine Culture Received Urine Clean Catch Pending Result Diagram: 01/19/17 2330 01/19/17 2330 Imaging Last Impressions Chest X-Ray 01/19/17 2343 Signed Impressions: Service Date/Time: Thursday, January 19, 2017 23:47 - CONCLUSION: No acute disease. Abhijeet Ware MD . Assessment and Plan Problem List: (1) Abscess of upper extremity ICD Code: L02.419 Status: Acute (2) IVDU (intravenous drug user) ICD Code: F19.90 Status: Chronic Assessment and Plan Abscess of bilateral forearms - suspect bacteremia IVDA - I and Ds performed in ED - cultures obtained - Antibiotics: vancomycin and zosyn IV - history of MRSA endocarditis per patient report it was treated at [facility] - await wound culture results and adjust treatment as needed - consult infectious disease - Morphine 2 mg IV q3h PRN pain > 5 Heart Murmur - tricuspid area History of MRSA endocarditis - 2D echocardiogram - Continuous cardiac telemetry to monitor for cardiac arrhythmia DVT prophylaxis - Lovenox 40 mg subq [id number] . This note was transcribed by [email or web address] [Sidra Jamison]. I, Dr. Roshni Mckinnon personally performed the history, physical exam, and medical decision making; and confirmed the accuracy of the information in the transcribed note. Authenticated by Dr. Roshni Mckinnon on 01/20/17 at 05:34. Discussed Condition With ER physician and patient . Sidra Jamison Jan 20, 2017 05:34 Roshni Mckinnon MD Jan 22, 2017 08:28
[2017-01-20] MEDS ORDERED: Vancomycin Consult Pharmacy 1 EA OTHER SCH (05:45)
[2017-01-20] MEDS ORDERED: MORPHINE SULFATE 4 MG/ML INJ IV PUSH PRN (05:45)
[2017-01-20] MEDS: ENOXAPARIN SODIUM 40 MG/0.4 ML SYRINGE SQ SCH (06:51)
[2017-01-20] MEDS: PIPERACIL-TAZO 4.5 GM PREMIX 100 ML IV SCH ×3 (10:22→23:08)
[2017-01-20] MEDS: SODIUM CHLORIDE 0.9% FLUSH 10 ML FLUSH IV FLUSH SCH ×2 (10:28→21:00)
--- NOTE | 2017-01-20 14:33 | HHI.PR ---
Subjective Remarks Follow-up for bilateral upper shoulder many cellulitis. Seen and evaluated with ID, Dr. Leo. The patient has been injecting cocaine into her arms. She denies any opiate use. She denies any other injection sites. She denies any other skin lesions. She reports feeling sleepy, but denies any specific fevers or chills. She does have a history of endocarditis treated last April at [facility]. She does recall that she was treated with a prolonged course of antibiotics, but she does not remember what bacteria she had or what heart valve was involved. Pain was 10/10 upon admission, currently 01/22. Objective Vitals Vital Signs Date Time Temp Pulse Resp B/P Pulse Ox O2 Delivery O2 Flow Rate FiO2 01/20/17 12:11 98.2 75 16 141/81 97 01/20/17 10:22 20 01/20/17 09:51 97.8 78 16 129/69 96 01/20/17 04:42 88 01/20/17 03:15 98.6 79 20 134/68 98 01/19/17 23:47 99 Room Air 01/19/17 23:34 85 18 136/69 99 Room Air 01/19/17 21:09 97.6 87 20 112/73 98 Room Air Result Diagram: 01/19/17 2330 01/19/17 2330 Imaging Last Impressions Chest X-Ray 01/19/17 2343 Signed Impressions: Service Date/Time: Thursday, January 19, 2017 23:47 - CONCLUSION: No acute disease. Abhijeet Ware MD Objective Remarks GENERAL: Well-developed fair-nourished young female patient appears much older than stated age. In no acute distress. SKIN: Warm and dry. Left wrist with previous I&D site, purulent drainage, edema extending up the forearm. Right dorsal hand/wrist with large area of swelling around I&D site; sanguinous and purulent drainage. HEENT: Normocephalic. Pupils equal and round. Mucous membranes pink and moist. CARDIOVASCULAR: Regular rate and rhythm. Systolic murmur appreciated. RESPIRATORY: No accessory muscle use. Clear to auscultation. Breath sounds equal bilaterally. GASTROINTESTINAL: Abdomen soft, non-tender, nondistended. Bowel sounds x4. MUSCULOSKELETAL: Bilateral upper extremity cellulitis. No clubbing or cyanosis. No edema. NEUROLOGICAL: Awake and alert. No focal neurological deficits. Moves upper and lower extremities spontaneously. Normal speech. PSYCHIATRIC: Appropriate mood and affect; insight and judgment normal. A/P Problem List: (1) Abscess of upper extremity ICD Code: L02.419 Status: Acute (2) IVDU (intravenous drug user) ICD Code: F19.90 Status: Chronic Assessment and Plan 36-year-old female with past medical history of IV drug abuse, history of endocarditis, history of hepatitis C who presented for bilateral upper extremity abscess and cellulitis Cellulitis and abscess of bilateral forearms - suspect bacteremia IVDA - I&Ds performed in ED - cultures obtained and pending - Antibiotics: vancomycin and zosyn IV - await wound culture results and adjust treatment as needed - consulted infectious disease, monitor cultures and obtain old records - Increase IV morphine to 4 mg - Elevated upper extremities Heart Murmur - tricuspid area History of MRSA endocarditis - 2D echocardiogram - Continuous cardiac telemetry to monitor for cardiac arrhythmia DVT prophylaxis - Lovenox 40 mg subq [id number] Yosvany Khan Jan 20, 2017 14:33
--- NOTE | 2017-01-20 15:34 | EKG ---
Date Performed: 01/19/2017 Time Performed: 23:54:35 PTAGE: 36 years EKG: Sinus rhythm NORMAL ECG PREVIOUS TRACING : 03/11/2015 19.05 DOCTOR: Tisha López Interpretating Date/Time 01/20/2017 15:33:06
--- NOTE | 2017-01-20 17:06 | ECHRPT ---
Indication: R/O ENDOCARDITIS CONCLUSIONS Normal left ventricular size. Wall thickness is normal. The right atrial size is moderately dilated. Mild thickening of the mitral valve leaflets. Mild mitral valve regurgitation. No mitral valve stenosis. Mild thickening of the tricuspid valve leaflets. There is moderate to severe tricuspid valve regurgitation. No tricuspid valve stenosis. The pulmonary valve is not well visualized. BP: 139 / 68 HR: 79 Rhythm: Sinus MEASUREMENTS (Male / Female) Normal Values Technical Quality:Fair 2D ECHO LV Diastolic Diameter PLAX 4.3 cm 4.2 - 5.9 / 3.9 - 5.3 cm LV Systolic Diameter PLAX 3.2 cm IVS Diastolic Thickness 0.6 cm 0.6 - 1.0 / 0.6 - 0.9 cm LVPW Diastolic Thickness 0.6 cm 0.6 - 1.0 / 0.6 - 0.9 cm LV Relative Wall Thickness 0.3 LVOT Diameter 1.9 cm Aortic Root Diameter 2.4 cm LA Systolic Diameter LX 2.2 cm 3.0 - 4.0 / 2.7 - 3.8 cm M-MODE AV Cusp Separation MM 2.0 cm DOPPLER AV Peak Velocity 96.5 cm/s AV Peak Gradient 3.7 mmHg AV Mean Gradient 3.0 mmHg AV Velocity Time Integral 18.3 cm LVOT Peak Velocity 79.7 cm/s LVOT Peak Gradient 2.5 mmHg LVOT Velocity Time Integral 15.5 cm LVOT Cardiac Index 2285.8 cm/minm AV Area Cont Eq vti 2.4 cm AV Area Cont Eq pk 2.3 cm Mitral E Point Velocity 59.7 cm/s Mitral A Point Velocity 59.2 cm/s Mitral E to A Ratio 1.0 LV E' Lateral Velocity 16.6 cm/s Mitral E to LV E' Lateral Ratio 3.6 LV E' Septal Velocity 9.0 cm/s Mitral E to LV E' Septal Ratio 6.6 TR Peak Velocity 265.0 cm/s TR Peak Gradient 28.1 mmHg PV Peak Velocity 60.9 cm/s PV Peak Gradient 1.5 mmHg FINDINGS LEFT VENTRICLE Normal left ventricular size. Wall thickness is normal. The left ventricular systolic function is normal with an estimated ejection fraction in the range of 60-65%. Left ventricular diastolic function parameters are normal. RIGHT VENTRICLE Normal right ventricular size and systolic function. LEFT ATRIUM The left atrial size is normal. RIGHT ATRIUM The right atrial size is moderately dilated. ATRIAL SEPTUM Normal atrial septal thickness without atrial level shunting by limited color doppler interrogation. AORTA The aortic root and proximal ascending aorta are normal in size on limited imaging. MITRAL VALVE Mild thickening of the mitral valve leaflets. Mild mitral valve regurgitation. No mitral valve stenosis. AORTIC VALVE Trileaflet aortic valve. No aortic valve stenosis or regurgitation. TRICUSPID VALVE Structurally normal tricuspid valve. Mild thickening of the tricuspid valve leaflets. There is moderate to severe tricuspid valve regurgitation. No tricuspid valve stenosis. PULMONARY VALVE The pulmonary valve is not well visualized. VESSELS The inferior vena cava is normal in size. PERICARDIUM No pericardial effusion. Jerel Enrique MD, FACC (Electronically Signed) Final Date:20 January 2017 17:04
[2017-01-20] MEDS: MORPHINE SULFATE 4 MG/ML INJ IV PUSH PRN (17:44)
[2017-01-20] MEDS: VANCOMYCIN INJ 1,250 MG in SODIUM CHLOR 0.9% 250 ML INJ 250 ML IV SCH (18:30)
--- NOTE | 2017-01-20 20:06 | MB ---
cc: RENÉ MARTIN MD DATE OF CONSULTATION 01/20/2017 REQUESTING PHYSICIAN Sidra Jamison. HISTORY OF THE PRESENT ILLNESS This is a 36-year-old white female who presents to emergency department because of pain and swelling of her right hand and left arm. The patient uses IV drugs. She injected cocaine in both her left wrist and also her right hand, subsequently developed pain and swelling which has worsened. She presents to emergency department for evaluation. The patient injects crack cocaine. Blood cultures were taken and cultures from both areas of infection of the hand and arm pending. The patient states that the pain was 10/10 scale when she presented. She noted that this pain began approximately one week ago. She denies headache or chest pain or back pain. She notes generally feeling tired and having occasional chills. The patient has been afebrile. Chest x-ray was performed and it showed no acute disease. The white blood cell count is normal. PAST MEDICAL HISTORY 1. Endocarditis diagnosed in April 2016. 2. IV drug use. 3. Hepatitis C. ALLERGIES BACTRIM, NAPROXEN AND LATEX. MEDICATIONS 1. Vancomycin. 2. Piperacillin / tazobactam. 3. Morphine sulfate. 4. Lovenox. SOCIAL HISTORY The patient smokes a pack of cigarettes a day. Positive IV drug use in the form of crack cocaine. No alcohol. FAMILY HISTORY Noncontributory. REVIEW OF SYSTEMS Significant for chills, pain in the right hand and left arm and generalized fatigue. Otherwise negative. PHYSICAL EXAMINATION GENERAL: This is a slender female who is in no acute distress. She appears somnolent. VITAL SIGNS: Include temperature of 98.2, BP 141/81, respirations 16, heart rate 75. HEENT: The head is atraumatic. Extraocular movements grossly intact, pupils reactive to light. No icterus. Oropharynx no visible lesions. NECK: Supple without adenopathy. LUNGS: Clear breath sounds which are diminished bilaterally. HEART: Regular S1-S2. No audible murmurs, rubs or gallops. ABDOMEN: Bowel sounds present, soft, nontender. RECTAL: Not performed. EXTREMITIES: The right hand has an opening from incision at the dorsal aspect. The dorsum of the hand is extremely swollen and tender and there is purulent drainage coming from the incision. Left forearm has an incision in the medial aspect which packed with gauze and there is also slight purulence on the dressing. The forearm is indurated from about the mid forearm to the wrist and there is tenderness on palpation of that area which is also warm. SKIN: No diffuse rash. The skin is warm and moist. NEUROLOGIC: No gross focal findings. PSYCHIATRIC: The patient is calm and cooperative. LABORATORY DATA WBC 4.8, platelets 255, hemoglobin 10.4, 72% neutrophils. Creatinine 0.77, BUN 13, estimated GFR 85, sodium 139. Liver function tests normal. C-reactive protein 4.8. IMPRESSION 1. Abscess of the right hand in the area of the IV drug injection. 2. Abscess of the left arm below the elbow in the area of drug injection. 3. IV drug use. 4. Probable urinary tract infection. RECOMMENDATIONS 1. Continue vancomycin. 2. Continue piperacillin / tazobactam. 3. Monitor blood cultures. 4. Monitor wound culture from both the right hand and the left forearm. 5. Agree with 2-D echocardiogram to evaluate for endocarditis in this patient who has a history of prior endocarditis. 6. Monitor the urine culture. Thank you for this consultation. The patient's progress will be followed and further recommendations will be given upon followup if necessary. René Martin MD FD/KK /2:31 PM /7:33 PM
[2017-01-21] VITALS (8 sets, daily range): BP systolic 132–148; BP diastolic 69–78; PULSE 63–83; RESP 16–18; TEMP 97.9–98.7; O2SAT 95–98
[2017-01-21] MEDS: VANCOMYCIN INJ 1,250 MG in SODIUM CHLOR 0.9% 250 ML INJ 250 ML IV SCH ×2 (01:12→13:51)
[2017-01-21] MEDS: PIPERACIL-TAZO 4.5 GM PREMIX 100 ML IV SCH ×4 (03:40→20:58)
[2017-01-21] MEDS: ENOXAPARIN SODIUM 40 MG/0.4 ML SYRINGE SQ SCH (06:49)
[2017-01-21] MEDS: SODIUM CHLORIDE 0.9% FLUSH 10 ML FLUSH IV FLUSH SCH ×2 (10:15→20:58)
[2017-01-21] MEDS: MORPHINE SULFATE 4 MG/ML INJ IV PUSH PRN ×4 (10:16→23:36)
--- NOTE | 2017-01-21 16:46 | HHI.IDPN ---
Note Infectious Disease Note Patient says she has same degree of pain in the r. arm and left arm. No distress. Afebrile. Denies chills. Blood culture neg x 2 days. Hand wound has strep non a,B,D. L. arm wound has group A strep. urine cx has e. coli. Injected cocaine in both her left wrist and also her right hand, No vegetations seen on ECHO. PAST MEDICAL HISTORY 1. Endocarditis diagnosed in April 2016.Records not available). 2. IV drug use. 3. Hepatitis C. ALLERGIES BACTRIM, NAPROXEN AND LATEX. MEDICATIONS 1. Vancomycin. 2. Piperacillin / tazobactam. 3. Morphine sulfate. 4. Lovenox. OBJ: Vital Signs Date Time Temp Pulse Resp B/P Pulse Ox O2 Delivery O2 Flow Rate FiO2 01/21/17 12:53 63 01/21/17 11:52 97.9 72 18 134/72 96 01/21/17 08:18 97.9 67 18 140/78 97 01/21/17 05:54 98.2 69 16 148/76 98 01/21/17 04:00 69 01/21/17 00:28 68 01/20/17 23:31 97.7 72 20 135/74 98 01/20/17 20:00 85 01/20/17 17:49 20 01/20/17 01/20/17 01/21/17 15:00 23:00 07:00 Intake Total 950 ml 450 ml Output Total 1600 ml 1000 ml Balance -650 ml -550 ml Intake Oral 600 ml IV Total 350 ml 450 ml Output Urine Total 1600 ml 1000 ml Laboratory Tests Test 01/19/17 23:30 White Blood Count 4.8 TH/MM3 Red Blood Count 3.73 MIL/MM3 Hemoglobin 10.4 GM/DL Hematocrit 30.9 % Mean Corpuscular Volume 82.9 FL Mean Corpuscular Hemoglobin 27.8 PG Mean Corpuscular Hemoglobin 33.5 % Concent Red Cell Distribution Width 15.3 % Platelet Count 255 TH/MM3 Mean Platelet Volume 10.0 FL Neutrophils (%) (Auto) 72.0 % Lymphocytes (%) (Auto) 16.7 % Monocytes (%) (Auto) 8.6 % Eosinophils (%) (Auto) 1.9 % Basophils (%) (Auto) 0.8 % Neutrophils # (Auto) 3.5 TH/MM3 Lymphocytes # (Auto) 0.8 TH/MM3 Monocytes # (Auto) 0.4 TH/MM3 Eosinophils # (Auto) 0.1 TH/MM3 Basophils # (Auto) 0.0 TH/MM3 CBC Comment DIFF FINAL Differential Comment Erythrocyte Sedimentation Rate 72 mm/hr Laboratory Tests Test 01/19/17 23:30 Sodium Level 139 MEQ/L Potassium Level 4.5 MEQ/L Chloride Level 107 MEQ/L Carbon Dioxide Level 26.6 MEQ/L Anion Gap 5 MEQ/L Blood Urea Nitrogen 13 MG/DL Creatinine 0.77 MG/DL Estimat Glomerular Filtration 85 ML/MIN Rate Random Glucose 83 MG/DL Lactic Acid Level 1.3 mmol/L Calcium Level 8.7 MG/DL Magnesium Level 2.2 MG/DL Total Bilirubin 0.2 MG/DL Aspartate Amino Transf 10 U/L (AST/SGOT) Alanine Aminotransferase 12 U/L (ALT/SGPT) Alkaline Phosphatase 81 U/L Troponin I LESS THAN 0.02 NG/ML C-Reactive Protein 4.80 MG/DL Total Protein 7.6 GM/DL Albumin 2.9 GM/DL Lipase 127 U/L Microbiology Date/Time Procedure Status Source Growth 01/19/17 23:30 Aerobic Blood Culture - Preliminary Resulted Blood Peripheral NO GROWTH IN 2 DAYS 01/19/17 23:30 Anaerobic Blood Culture - Preliminary Resulted Blood Peripheral NO GROWTH IN 2 DAYS 01/19/17 23:30 Urine Culture - Final Complete Urine Clean Catch Escherichia Coli 01/19/17 23:46 Aerobic Blood Culture - Preliminary Resulted Blood Peripheral NO GROWTH IN 2 DAYS 01/19/17 23:46 Anaerobic Blood Culture - Preliminary Resulted Blood Peripheral NO GROWTH IN 2 DAYS 01/20/17 01:38 Gram Stain - Final Resulted Wound Arm 01/20/17 01:38 Wound Culture - Preliminary Resulted Group A Beta Strep 01/20/17 01:38 Gram Stain - Final Resulted Wound Hand 01/20/17 01:38 Wound Culture - Preliminary Resulted Strep Not A,B D PHYSICAL EXAMINATION GENERAL: No acute distress. Awake and alert. HEENT: The head is atraumatic. Extraocular movements grossly intact, pupils reactive to light. No icterus. Oropharynx no visible lesions. NECK: Supple without adenopathy. LUNGS: Clear breath sounds. HEART: Regular S1-S2. No audible murmurs, rubs or gallops. ABDOMEN: Bowel sounds present, soft, nontender. EXTREMITIES: The right hand has an opening from incision at the dorsal aspect. The dorsum of the hand Decreased swelling. Tender. (+) drainage. Left forearm has an incision in the medial aspect which packed with gauze. The forearm is indurated from about the mid forearm to the wrist and there is tenderness on palpation. SKIN: No diffuse rash. The skin is warm and moist. NEUROLOGIC: No gross focal findings. PSYCHIATRIC: Calm and cooperative. C-reactive protein 4.8. IMPRESSION 1. Abscess of the right hand in the area of the IV drug injection. Strep non A, B D. 2. Abscess of the left arm below the elbow in the area of drug injection. GP A strep. 3. IV drug use. 4. UTI - E. coli. RECOMMENDATIONS 1. Continue vancomycin. 2. Continue piperacillin / tazobactam. 3. Monitor blood cultures. 4. If the blood cultures comes back negative and she does not need further debridement she can be discharged on PO Amoxicillin 500mg PO tid x 10 days for te wound infection, and Nitrofurantion Po for the UTI. However follow wound culture until final. René Leo MD Jan 21, 2017 16:46
--- NOTE | 2017-01-21 18:27 | HHI.PR ---
Subjective Remarks Follow up for upper ext infected wounds, IVDU, UTI. Ms. Greenberg is resting in bed , tolerating diet. She complains of pain. No fever, chills. Objective Vitals Vital Signs Date Time Temp Pulse Resp B/P Pulse Ox O2 Delivery O2 Flow Rate FiO2 01/21/17 16:00 98.1 77 16 132/69 97 01/21/17 12:53 63 01/21/17 11:52 97.9 72 18 134/72 96 01/21/17 08:18 97.9 67 18 140/78 97 01/21/17 05:54 98.2 69 16 148/76 98 01/21/17 04:00 69 01/21/17 00:28 68 01/20/17 23:31 97.7 72 20 135/74 98 01/20/17 20:00 85 I/O 01/20/17 01/20/17 01/20/17 01/21/17 01/21/17 01/21/17 06:59 14:59 22:59 06:59 14:59 22:59 Intake Total 950 ml 450 ml Output Total 1600 ml 1000 ml Balance -650 ml -550 ml Intake Oral 600 ml IV Total 350 ml 450 ml Output Urine Total 1600 ml 1000 ml Result Diagram: 01/19/17 2330 01/19/17 233 Imaging Last Impressions Chest X-Ray 01/19/173 Signed Impressions: Service Date/Time: Thursday, January 19, 2017 23:47 - CONCLUSION: No acute disease. Abhijeet Ware MD Objective Remarks GENERAL: Alert, Oriented x 3, NAD. SKIN: Warm and dry. Left wrist wrapped in dressing. Right dorsal hand/wrist wrapped as well. HEAD: Normocephalic. EYES: No scleral icterus. No injection or drainage. NECK: Supple, trachea midline. No JVD or lymphadenopathy. CARDIOVASCULAR: Regular rate and rhythm without murmurs, gallops, or rubs. RESPIRATORY: Breath sounds equal bilaterally. No accessory muscle use. GASTROINTESTINAL: Abdomen soft, non-tender, nondistended. MUSCULOSKELETAL: No cyanosis, or edema. BACK: Nontender without obvious deformity. No CVA tenderness. Procedures Echo 01/20/2017 CONCLUSIONS Normal left ventricular size. Wall thickness is normal. The right atrial size is moderately dilated. Mild thickening of the mitral valve leaflets. Mild mitral valve regurgitation. No mitral valve stenosis. Mild thickening of the tricuspid valve leaflets. There is moderate to severe tricuspid valve regurgitation. No tricuspid valve stenosis. The pulmonary valve is not well visualized. A/P Problem List: (1) Abscess of upper extremity ICD Code: L02.419 Status: Acute (2) IVDU (intravenous drug user) ICD Code: F19.90 Status: Chronic Assessment and Plan 36-year-old female with past medical history of IV drug abuse, history of endocarditis, history of hepatitis C who presented for bilateral upper extremity abscess and cellulitis - Cellulitis and abscess of bilateral forearms - IV Drug user - I&Ds performed in ED - cultures obtained and pending - Antibiotics: vancomycin and zosyn IV - Wound culture shows Strep group A growth, Blood cultures NGTD, Urine cx growing E. Coli. - ID following, recommends Amoxicillin and Nitrofurantoin PO on discharge if blood cultures remain negative. - Continue IV morphine to 4 mg PRN - Elevated upper extremities - Heart Murmur - tricuspid area - History of MRSA endocarditis - 2D echocardiogram - shows no evidence of any vegetation. Full code. Chiquix. Andrew Suresh DO Jan 21, 2017 18:27
[2017-01-22 00:25] VITALS: BP 120/65; PULSE 73; RESP 16; TEMP 98.2; O2SAT 100
[2017-01-22] MEDS ORDERED: PHARMACY ORDERED LAB ONE (00:45)
[2017-01-22] MEDS: PIPERACIL-TAZO 4.5 GM PREMIX 100 ML IV SCH ×2 (02:27→10:23)
[2017-01-22 03:28] LABS: AUTOMATED NEUTROPHIL # 2.4 TH/MM3 (1.8-7.7); BASOPHIL # 0.1 TH/MM3 (0-0.2); BASOPHIL % 1.3 % (0.0-2.0); EOSINOPHIL # 0.1 TH/MM3 (0-0.4); HEMATOCRIT 37.4 % (35.0-46.0); HEMO FLAGS DIFF FINAL; LYMPH % 25.2 % (9.0-44.0); MEAN CELL VOLUME 83.8 FL (80.0-100.0); MEAN CORPUSCULAR HEMOGLOBIN 26.8 PG (27.0-34.0); MONO % 9.8 % (0.0-8.0); NEUT % 61.7 % (16.0-70.0); PLATELET COUNT 252 TH/MM3 (150-450); RED BLOOD COUNT 4.47 MIL/MM3 (4.00-5.30); WHITE BLOOD COUNT 3.9 TH/MM3 (4.0-11.0)
[2017-01-22 03:50] LABS: BICARBONATE 27.4 MEQ/L (21.0-32.0); POTASSIUM 3.9 MEQ/L (3.5-5.1)
[2017-01-22 03:51] LABS: VANCOMYCIN TROUGH 10.4 MCG/ML (5.0-10.0)
[2017-01-22] MEDS: VANCOMYCIN INJ 1,250 MG in SODIUM CHLOR 0.9% 250 ML INJ 250 ML IV SCH (05:02)
[2017-01-22] MEDS: MORPHINE SULFATE 4 MG/ML INJ IV PUSH PRN ×3 (05:03→14:20)
[2017-01-22] MEDS: ENOXAPARIN SODIUM 40 MG/0.4 ML SYRINGE SQ SCH (05:45)
[2017-01-22] MEDS: SODIUM CHLORIDE 0.9% FLUSH 10 ML FLUSH IV FLUSH SCH (10:23)
[2017-01-22] MEDS ORDERED: MACR100C2 PO (11:26)
[2017-01-22] MEDS ORDERED: AMOX500C PO (11:26)
--- NOTE | 2017-01-22 11:31 | HHI.DS ---
Discharge Summary Admission Date Jan 20, 2017 at 6:13 am Discharge Date: Jan 22, 2017 Admitting Diagnosis Abscesses with history of IVDU (1) Abscess of upper extremity ICD Code: L02.419 (2) IVDU (intravenous drug user) ICD Code: F19.90 Procedures Echo 01/20/2017 CONCLUSIONS Normal left ventricular size. Wall thickness is normal. The right atrial size is moderately dilated. Mild thickening of the mitral valve leaflets. Mild mitral valve regurgitation. No mitral valve stenosis. Mild thickening of the tricuspid valve leaflets. There is moderate to severe tricuspid valve regurgitation. No tricuspid valve stenosis. The pulmonary valve is not well visualized. Brief History - From Admission Written by Sidra Jamison, acting as scribe for Dr. Mckinnon on 01/20/17 at 05:34. Symptoms Forearm abscesses bilaterally x 1 week; had swelling IVDA - injected in these areas - last injection one week ago Reuses same area to inject cocaine Reports history of MRSA endocarditis treated at [facility] last year Has history of endocarditis one year ago - did not need heart valve replacement - was on antibiotics for a "couple of months" Denies nausea, vomiting, diarrhea, hematuria, dysuria, bloody or dark stool, chest pain, or shortness of breath CBC/BMP: 01/22/17 0312 01/22/17 0312 Significant Findings Laboratory Tests Test 01/19/17 01/22/17 23:30 03:12 Red Blood Count 3.73 MIL/MM3 (4.00-5.30) Hemoglobin 10.4 GM/DL (11.6-15.3) Hematocrit 30.9 % (35.0-46.0) Neutrophils (%) (Auto) 72.0 % (16.0-70.0) Monocytes (%) (Auto) 8.6 % (0.0-8.0) 9.8 % (0.0-8.0) Lymphocytes # (Auto) 0.8 TH/MM3 (1.0-4.8) Erythrocyte Sedimentation Rate 72 mm/hr (0-20) Urine Turbidity HAZY (CLEAR) Urine Leukocyte Esterase MOD (NEG) Urine WBC 20 /hpf (0-5) Urine Bacteria RARE /hpf (NONE) Urine Mucus FEW /lpf (OCC) Estimat Glomerular Filtration 85 ML/MIN (>89) 84 ML/MIN (>89) Rate Aspartate Amino Transf 10 U/L (15-37) (AST/SGOT) Troponin I LESS THAN 0.02 NG/ML (0.02-0.05) C-Reactive Protein 4.80 MG/DL (0.00-0.30) Albumin 2.9 GM/DL (3.4-5.0) Salicylates Level 2.4 MG/DL (2.8-20.0) Urine Opiates Screen POS (NEG) Acetaminophen Level LESS THAN 2.0 MCG/ML (10.0-30.0) Urine Amphetamines Screen POS (NEG) Urine Cocaine Screen POS (NEG) White Blood Count 3.9 TH/MM3 (4.0-11.0) Mean Corpuscular Hemoglobin 26.8 PG (27.0-34.0) Vancomycin Level Trough 10.4 MCG/ML (5.0-10.0) Imaging Last Impressions Chest X-Ray 01/19/17 [id number] Signed Impressions: Service Date/Time: Thursday, January 19, 2017 23:47 - CONCLUSION: No acute disease. Abhijeet Ware MD PE at Discharge GENERAL: Alert, Oriented x 3, NAD. SKIN: Warm and dry. Left wrist wrapped in dressing. Right dorsal hand/wrist wrapped as well. HEAD: Normocephalic. EYES: No scleral icterus. No injection or drainage. NECK: Supple, trachea midline. No JVD or lymphadenopathy. CARDIOVASCULAR: Regular rate and rhythm without murmurs, gallops, or rubs. RESPIRATORY: Breath sounds equal bilaterally. No accessory muscle use. GASTROINTESTINAL: Abdomen soft, non-tender, nondistended. MUSCULOSKELETAL: No cyanosis, or edema. BACK: Nontender without obvious deformity. No CVA tenderness. Pt update on day of discharge Patient is doing well. No acute concerns. Denies any fever, chills. Hospital Course 36-year-old female with past medical history of IV drug abuse, history of endocarditis, history of hepatitis C who presented for bilateral upper extremity abscess and cellulitis - Cellulitis and abscess of bilateral forearms - IV Drug user - I&Ds performed in ED - cultures obtained and pending - Antibiotics: vancomycin and zosyn IV - Wound culture shows Strep group A growth, Blood cultures NGTD, Urine cx growing E. Coli. - ID following, recommends Amoxicillin and Nitrofurantoin PO on discharge if blood cultures remain negative. - Blood cx negative. Wound cx final. - Continue IV morphine to 4 mg PRN - Elevated upper extremities - Heart Murmur - tricuspid area - History of MRSA endocarditis - 2D echocardiogram - shows no evidence of any vegetation. Full code. Lovenox. Pt Condition on Discharge: Good Discharge Disposition: Discharge Home Discharge Time: > 30 minutes Discharge Instructions DIET: Follow Instructions for: As Tolerated, No Restrictions Activities you can perform: Regular-No Restrictions Follow up Referrals: PCP Follow-up - 1 Week New Medications: Amoxicillin (Amoxicillin) 500 Mg Cap 500 MG PO TID Infection #30 Ref 0 CAP Nitrofurantoin Monohydrate Macrocrystals (Macrobid) 100 Mg Cap 100 MG PO BID Infection #14 Ref 0 CAP Andrew Suresh DO Jan 22, 2017 11:31
[2017-01-22] MEDS ORDERED: VANCOMYCIN INJ 1,250 MG in SODIUM CHLOR 0.9% 250 ML INJ 250 ML IV SCH (17:00)
== END 2017-01-22 15:20 | disposition home or self-care (01) | DRG 603 ==
LOC: NEPE 21:08 → INTOOBSV 01-20 01:17 → NEDA 01-20 01:17 → NEPGCP 01-20 03:12 → OBSVTOIN 01-20 06:13
PROVIDERS: ADMIT Hospitalist; ATTEND Hospitalist
PROC: 0H9FXZX Drainage of Right Hand Skin, External Approach, Diagnostic (ICD-10-PCS; principal; 2017-01-20)
PROC: 0H9EXZX Drainage of Left Lower Arm Skin, External Approach, Diagnostic (ICD-10-PCS; 2017-01-20)
DX: L02.414 Cutaneous abscess of left upper limb (principal); I08.1 Rheumatic disorders of both mitral and tricuspid valves; N39.0 Urinary tract infection, site not specified; L02.413 Cutaneous abscess of right upper limb; B95.0 Streptococcus, group A, as the cause of diseases classified elsewhere; B96.20 Unspecified Escherichia coli [E. coli] as the cause of diseases classified elsewhere; L03.114 Cellulitis of left upper limb; L03.113 Cellulitis of right upper limb; F14.10 Cocaine abuse, uncomplicated; B19.20 Unspecified viral hepatitis C without hepatic coma; F17.210 Nicotine dependence, cigarettes, uncomplicated
CPT/HCPCS: 10061; 51702; 71010; 80048; 80053; 80202; 80307; 81001; 83605; 83690; 83735; 84484; 84703; 85025; 85610; 85652; 85730; 86140; 86403; 87040; 87070; 87077; 87086; 87186; 87205; 93005; 93306; 96374; 96375; J1650; J2270; J2405; J2543; J3370; J7030; J7050

== ENCOUNTER 2017-07-04 01:53 | Inpatient (IN) | payer SELFPAY ==
[2017-07-04] VITALS (10 sets, daily range): BP systolic 103–138; BP diastolic 61–86; PULSE 78–110; RESP 13–20; TEMP 97.7–99; O2SAT 98–100
[~2017-07-04] VITALS: Ht 175.3 cm; Wt 58.0 kg
[~2017-07-04 01:53] MED LIST changes: +AMOX500C PO; -CLIN150 PO; +MACR100C2 PO
[2017-07-04] MEDS ORDERED: SODIUM CHLOR 0.9% 1000 ML INJ 1,000 ML IV SCH (02:56)
[2017-07-04] MEDS ORDERED: ACETAMINOPHEN 325 MG TAB PO ONE (03:00)
[2017-07-04] MEDS ORDERED: ONDANSETRON HCL 4 MG/2 ML VIAL IVP ONE (03:00)
--- NOTE | 2017-07-04 03:01 | PD ---
HPI Chief Complaint: GI Complaint Time Seen by Provider: 02:52 Travel History International Travel<30 days: No Contact w/Intl Traveler<30days: No Traveled to known affect area: No History of Present Illness HPI 36yo F with PMH of IVDA and homelessness presents to the ED with c/o abdominal pain for 2 days. Associated with nausea and vomiting. Said she has not had a bowel movement for a while. Denies any fever, chest pain, dysuria, hematuria, diarrhea, vaginal bleeding or discharge. PFSH Past Medical History Hx Anticoagulant Therapy: No (WAS WHEN ADMITTED, NOW RESOLVED.) Bipolar Disorder: Yes Anxiety: Yes Depression: Yes Cancer: No Cardiovascular Problems: Yes ( ENDOCARDITIS) Chemotherapy: No Cerebrovascular Accident: No Diabetes: No Diminished Hearing: No Endocrine: No Hepatitis: Yes Immune Disorder: No Psychiatric: Yes Respiratory: Yes (SMOKER DAILY, CRACK. ) Immunizations Current: Yes Myocardial Infarction: No ?: Not Menopausal: No : 4 Para: 3 Miscarriage: 0 : 0 Past Surgical History Surgical History: No Previous Surgery Hysterectomy: No Social History Alcohol Use: No Tobacco Use: Yes (1 PPD) Substance Use: No (DENIES - HX crack, HEROIN) Allergies-Medications (Allergen,Severity, Reaction): Coded Allergies: latex (Unverified Allergy, Severe, LIGHT RASH, 07/04/17) naproxen (Unverified Allergy, Severe, PT SAYS RAULITO GILLIS - NURSE ASKED 0845, 07/04/17) sulfamethoxazole (Unverified Allergy, Intermediate, SWOLLEN LIPS, 07/04/17) trimethoprim (Unverified Allergy, Intermediate, SWOLLEN LIPS, 07/04/17) *MDRO Multi-Drug Resistant Organism (Verified Adverse Reaction, Unknown, ) NRSA Wounds 07/10/05, , 08/04/10 Reported Meds & Prescriptions Reported Meds & Active Scripts Active No Active Prescriptions or Reported Medications Review of Systems Except as stated in HPI: all other systems reviewed are Neg Physical Exam Narrative GENERAL: 36yo F in mild distress. SKIN: Focused skin assessment warm/dry. HEAD: Atraumatic. Normocephalic. CARDIOVASCULAR: Regular rate and rhythm. No murmur appreciated. RESPIRATORY: No accessory muscle use. Clear to auscultation. Breath sounds equal bilaterally. GASTROINTESTINAL: Abdomen soft, left lower abdominal distension and mass that feels hard. +TTP there. MUSCULOSKELETAL: No obvious deformities. No clubbing. No cyanosis. No edema. NEUROLOGICAL: Awake and alert. No obvious cranial nerve deficits. Motor grossly within normal limits. Normal speech. PSYCHIATRIC: Appropriate mood and affect; insight and judgment normal. Data Data Last Documented VS Vital Signs Date Time Temp Pulse Resp B/P (MAP) Pulse Ox O2 Delivery O2 Flow Rate FiO2 07/04/17 04:00 99.0 103 18 121/77 (92) 99 Room Air Orders Orders Complete Blood Count With Diff (07/04/17 02:56) Comprehensive Metabolic Panel (07/04/17 02:56) Lipase (07/04/17 02:56) Urinalysis - C+S If Indicated (07/04/17 02:56) Ondansetron Inj (Zofran Inj) (07/04/17 03:00) Sodium Chlor 0.9% 1000 Ml Inj (Ns 1000 M (07/04/17 02:56) Acetaminophen (Tylenol) (07/04/17 03:00) Ed Urine Pregnancytest Poc (07/04/17 03:01) Beta Hcg (Quant/Titer) (07/04/17 03:10) Ct Abd/Pel W/O Iv Contrast (07/04/17 ) Ondansetron Odt (Zofran Odt) (07/04/17 04:00) Morphine Inj (Morphine Inj) (07/04/17 05:30) Ct Abd/Pel W Iv Contrast(Rout) (07/04/17 ) Piperacil-Tazo 3.375 Gm Premix (Zosyn 3. (07/04/17 05:30) Blood Culture (07/04/17 05:26) Lactic Acid Sepsis Protocol (07/04/17 05:26) Prothrombin Time / Inr (Pt) (07/04/17 05:26) Act Partial Throm Time (Ptt) (07/04/17 05:26) Sodium Chlor 0.9% 1000 Ml Inj (Ns 1000 M (07/04/17 05:30) Admit Order (Ed Use Only) (07/04/17 05:34) Consult General Surgery (07/04/17 ) Creatine Kinase (Cpk) (07/04/17 03:10) CKMB (07/04/17 03:10) CKMB% (07/04/17 03:10) Labs Laboratory Tests Test 07/04/17 03:10 07/04/17 05:35 White Blood Count 26.9 TH/MM3 Red Blood Count 4.28 MIL/MM3 Hemoglobin 11.8 GM/DL Hematocrit 34.7 % Mean Corpuscular Volume 81.1 FL Mean Corpuscular Hemoglobin 27.6 PG Mean Corpuscular Hemoglobin Concent 34.1 % Red Cell Distribution Width 15.6 % Platelet Count 153 TH/MM3 Mean Platelet Volume 12.9 FL Neutrophils (%) (Auto) 91.9 % Lymphocytes (%) (Auto) 2.2 % Monocytes (%) (Auto) 5.7 % Eosinophils (%) (Auto) 0.1 % Basophils (%) (Auto) 0.1 % Neutrophils # (Auto) 24.8 TH/MM3 Lymphocytes # (Auto) 0.6 TH/MM3 Monocytes # (Auto) 1.5 TH/MM3 Eosinophils # (Auto) 0.0 TH/MM3 Basophils # (Auto) 0.0 TH/MM3 CBC Comment AUTO DIFF Differential Total Cells Counted 100 Neutrophils % (Manual) 85 % Band Neutrophils % 8 % Lymphocytes % 1 % Monocytes % 6 % Neutrophils # (Manual) 25.0 TH/MM3 Differential Comment FINAL DIFF MANUAL Toxic Vacuolation PRESENT Dohle Bodies PRESENT Platelet Estimate NORMAL Platelet Morphology Comment NORMAL Basophilic Stippling FAINT Urine Color LIGHT-ORANGE Urine Turbidity CLOUDY Urine pH 5.5 Urine Specific [place] 1.029 Urine Protein 100 mg/dL Urine Glucose (UA) NEG mg/dL Urine Ketones NEG mg/dL Urine Occult Blood SMALL Urine Nitrite NEG Urine Bilirubin NEG Urine Urobilinogen 2.0 MG/DL Urine Leukocyte Esterase NEG Urine WBC 2 /hpf Urine Amorphous Sediment OCC Urine Mucus FEW /lpf Microscopic Urinalysis Comment CULT NOT INDICATED Blood Urea Nitrogen 39 MG/DL Creatinine 1.37 MG/DL Random Glucose 91 MG/DL Total Protein 9.1 GM/DL Albumin 3.4 GM/DL Calcium Level 9.1 MG/DL Alkaline Phosphatase 99 U/L Aspartate Amino Transf (AST/SGOT) 40 U/L Alanine Aminotransferase (ALT/SGPT) 10 U/L Total Bilirubin 0.7 MG/DL Sodium Level 127 MEQ/L Potassium Level 4.4 MEQ/L Chloride Level 88 MEQ/L Carbon Dioxide Level 26.4 MEQ/L Anion Gap 13 MEQ/L Estimat Glomerular Filtration Rate 44 ML/MIN Total Creatine Kinase 227 U/L Creatine Kinase MB 7.0 NG/ML Creatine Kinase MB % 3.1 % Lipase 84 U/L Human Chorionic Gonadotropin, Quant LESS THAN 1 MIU/ML Urine Opiates Screen NEG Urine Barbiturates Screen NEG Urine Amphetamines Screen POS Urine Benzodiazepines Screen NEG Urine Cocaine Screen POS Urine Cannabinoids Screen NEG Lactic Acid Level 1.0 mmol/L MDM Medical Decision Making Medical Screen Exam Complete: Yes Emergency Medical Condition: Yes Differential Diagnosis Constipation vs. gastroenteritis vs. diverticulitis vs. cystitis Narrative Course 36yo F with PMH of IVDA here with c/o abdominal pain for 2 days. Associated with nausea and vomiting. Labs reviewed, leukocytosis at 26.9. Blood cultures added along with lactic acid and zosyn and NS IVF. CMP showed hyponatremia at 127. BUN/creatinine elevated at 39/1.37. negative. UA showed no leukocyte. We were having a lot of trouble obtaining IV access so did a CT a/p without contrast. CT a/p showed enlarged displaced spleen into the left lower quadrant consistent with wondering spleen. There is swirling of splenic vasculature in left upper quadrant concerning for torsion. Cannot evaluate for associated splenic infarction given lack of IV contrast. Trace amount of isodense ascites concerning for hemoperitoneum. Pt denies any trauma. I discussed with Dr. Aleman at 5:24am and he agrees with repeating CTa/p with IV contrast. He wants to admit pt to medicine or ICU and he will consult. Said he will be here in less than an hour. We were able to obtain a 20 gauge IV in left arm. Discussed with Dr. Louis and accepted to his service. CT a/p with IV contrast again showed the enlarged inferiorly displaced spleen and splenic artery patent but spleen is not enhancing consistent with splenic infarction. Critical Care Narrative Aggregate critical care time was 50 minutes. Time to perform other separately billable procedures was not included in the critical care time. My time did not include minutes spent treating any other patients simultaneously or on activities that did not directly contribute to the patient's treatment. The services I provided to this patient were to treat and/or prevent clinically significant deterioration that could result in: cardiovascular collapse or . I provided critical care services requiring my management, as noted below: Chart data review, documentation time, medication orders and management, vital sign assessments/reviewing monitor data, ordering and reviewing lab tests, ordering and interpreting/reviewing x- rays and diagnostic studies, care of the patient and discussion of the patient with the admitting physicians. Diagnosis Primary Impression: Splenic infarct Admitting Information Admitting Physician Requests: Admit Scripts No Active Prescriptions or Reported Meds Gudelia Parada DO Jul 04, 2017 03:01
[2017-07-04 03:44] LABS: AMORPHOUS SEDIMENT, URINE OCC; BILIRUBIN, URINE NEG (NEG); BLOOD, URINE SMALL (NEG); GLUCOSE,URINE NEG (NEG); KETONE, URINE NEG (NEG); MUCUS URINE FEW /lpf (OCC); NITRITE,URINE NEG (NEG); PH, URINE 5.5 (5.0-8.5); URINE LEUKOCYTE ESTERASE NEG (NEG)
[2017-07-04 03:45] LABS: URINE COLOR LIGHT-ORANGE (YELLW/STRAW)
[2017-07-04 03:58] LABS: ALBUMIN 3.4 GM/DL (3.4-5.0); ALKALINE PHOSPHATASE 99 U/L (45-117); ALT (GPT) 10 U/L (10-53); AST (GOT) 40 U/L (15-37); BICARBONATE 26.4 MEQ/L (21.0-32.0); BLOOD UREA NITROGEN 39 MG/DL (7-18); CALCIUM 9.1 MG/DL (8.5-10.1); CHLORIDE 88 MEQ/L (98-107); CREATININE 1.37 MG/DL (0.50-1.00); GLOMERULAR FILTRATION RATE 44 ML/MIN (>89); GLUCOSE,RANDOM 91 MG/DL (74-106); LIPASE 84 U/L (73-393); SODIUM (NA) 127 MEQ/L (136-145); TOTAL BILIRUBIN ADULT 0.7 MG/DL (0.2-1.0); TOTAL PROTEIN 9.1 GM/DL (6.4-8.2)
[2017-07-04 04:00] LABS: AUTOMATED NEUTROPHIL # 24.8 TH/MM3 (1.8-7.7); BASOPHIL % 0.1 % (0.0-2.0); EOSINOPHIL % 0.1 % (0.0-4.0); HEMATOCRIT 34.7 % (35.0-46.0); HEMOGLOBIN 11.8 GM/DL (11.6-15.3); LYMPH % 2.2 % (9.0-44.0); LYMPHOCYTE # 0.6 TH/MM3 (1.0-4.8); MEAN CELL VOLUME 81.1 FL (80.0-100.0); MEAN CORPUSCULAR HEMOGLOBIN 27.6 PG (27.0-34.0); MEAN CORPUSCULAR HGB CONC 34.1 % (32.0-36.0); MEAN PLATELET VOLUME 12.9 FL (7.0-11.0); MONO % 5.7 % (0.0-8.0); MONOCYTE # 1.5 TH/MM3 (0-0.9); NEUT % 91.9 % (16.0-70.0); PLATELET COUNT 153 TH/MM3 (150-450); RED BLOOD COUNT 4.28 MIL/MM3 (4.00-5.30); RED CELL DISTRIBUTION WIDTH 15.6 % (11.6-17.2); WHITE BLOOD COUNT 26.9 TH/MM3 (4.0-11.0)
[2017-07-04] MEDS ORDERED: ONDANSETRON ODT 4 MG TAB PO ONE (04:00)
[2017-07-04 04:34] LABS: BANDS 8 % (0-6); LYMPHOCYTES 1 % (9-44); MONOCYTES 6 % (0-8); POLYS (SEG NEUTROPHILS) 85 % (16-70)
[2017-07-04 04:36] LABS: DOHLE BODIES PRESENT (NONE SEEN); TOXIC VACUOLATION PRESENT (NONE SEEN)
--- NOTE | 2017-07-04 05:04 | RADRPT ---
EXAM DATE/TIME: 07/04/2017 04:20 [facility] COMPARISON: No previous studies available for comparison. INDICATIONS : Abdominal pain. ORAL CONTRAST: No oral contrast ingested. RADIATION DOSE: 4.53 CTDIvol (mGy) MEDICAL HISTORY : Hepatitis. substance abuse (crack & heroin) MRSA SURGICAL HISTORY : None. ENCOUNTER: Initial ACUITY: 1 day PAIN SCALE: 6/10 LOCATION: abdomen TECHNIQUE: Volumetric scanning of the abdomen and pelvis was performed. Using automated exposure control and ad justment of the mA and/or kV according to patient size, radiation dose was kept as low as reasonably achievable to obtain optimal diagnostic quality images. DICOM format image data is available electro nically for review and comparison. FINDINGS: LOWER LUNGS: The visualized lower lungs are clear. LIVER: Homogeneous density without lesion. There is no dilation of the biliary tree. No calcified gallston es. SPLEEN: Abnormal. Spleen is enlarged measuring up to 20 cm and displaced inferiorly into the anterior left lo wer quadrant/pelvis. There is whirled hyperdense splenic vessels. PANCREAS: Within normal limits. KIDNEYS: Normal in size and shape. There is no mass, stone, or hydronephrosis. ADRENAL GLANDS: Within normal limits. VASCULAR: There is no aortic aneurysm. BOWEL/MESENTERY: The stomach, small bowel, and colon demonstrate no acute abnormality. There is no free intraperitone al air. There is trace nearly isodense ascites. ABDOMINAL WALL: Within normal limits. RETROPERITONEUM: There is no lymphadenopathy. BLADDER: No wall thickening or mass. REPRODUCTIVE: Within normal limits. INGUINAL: There is no lymphadenopathy or hernia. MUSCULOSKELETAL: Within normal limits for patient age. CONCLUSION: 1. Enlarged displaced spleen into the left lower quadrant/pelvis consistent with wondering spleen. Th ere is swirling of the splenic vasculature in the left upper quadrant concerning for torsion. Cannot evaluate for associated splenic infarction given the lack of IV contrast. 2. Trace amount of isodense ascites concerning for hemoperitoneum. Findings were personally discussed with Dr. Lau. Art Noel MD on July 04, 2017 at 4:47 Board Certified Radiologist. This report was verified electronically.
[2017-07-04] MEDS ORDERED: PIPERACIL-TAZO 3.375 GM PREMIX 50 ML IV ONE (05:30)
[2017-07-04] MEDS ORDERED: SODIUM CHLOR 0.9% 1000 ML INJ 1,000 ML IV ONE (05:30)
[2017-07-04] MEDS ORDERED: MORPHINE SULFATE 2 MG/ML INJ IV PUSH ONE (05:30)
[2017-07-04] MEDS ORDERED: IOHEXOL 350 MG/ML 10 ML VIAL (for RAD DIAG) IVCONTRAST ONE (05:39)
[2017-07-04] MEDS ORDERED: MISCELLANEOUS NURSING INFORMATION XX SCH (05:45)
[2017-07-04] MEDS ORDERED: SODIUM CHLORIDE 0.9% FLUSH 10 ML FLUSH IV FLUSH PRN ×2 (05:45→09:00)
[2017-07-04] MEDS ORDERED: BISACODYL 10 MG SUPP RECTAL PRN (05:45)
[2017-07-04] MEDS ORDERED: MORPHINE SULFATE 2 MG/ML INJ IV PUSH PRN (05:45)
[2017-07-04] MEDS ORDERED: ZOLPIDEM TARTRATE 5 MG TAB PO PRN (05:45)
[2017-07-04] MEDS ORDERED: RESP: ALBUTEROL 2.5 MG/IPRATROPIUM 0.5 MG NEB (PRN) INH (05:45)
[2017-07-04] MEDS ORDERED: ONDANSETRON HCL 4 MG/2 ML VIAL IV PUSH PRN (05:45)
[2017-07-04] MEDS ORDERED: Vancomycin Consult Pharmacy 1 EA OTHER SCH (05:45)
[2017-07-04] MEDS ORDERED: CHLORHEXIDINE GLUCONATE 2 % 1 PACK (2 CLOTHS) TOP PRN (05:45)
[2017-07-04] MEDS ORDERED: SENNOSIDES 8.6 MG TAB PO PRN (05:45)
[2017-07-04] MEDS ORDERED: MAGNESIUM HYDROXIDE SUSP 30 ML CUP PO PRN (05:45)
[2017-07-04] MEDS ORDERED: ACETAMINOPHEN 325 MG TAB PO PRN (05:45)
[2017-07-04] MEDS ORDERED: LACTULOSE SYRUP 20 GM/30 ML CUP PO PRN (05:45)
--- NOTE | 2017-07-04 05:58 | HHI.HP ---
HPI Service Critical Care Medicine Primary Care Physician No Primary Care Physician Admission Diagnosis Splenic torsion Diagnosis: Travel History International Travel<30 Days: No Contact w/Intl Traveler <30 Da: No Traveled to Known Affected Are: No History of Present Illness 36-year-old female with past medical history of hepatitis C, IV drug use, endocarditis last year and homelessness presents today with complains abdominal pain for 2 days. Associated with nausea and vomiting. Said she has not had a bowel movement for a while. Denies any fever, chest pain, dysuria, hematuria, diarrhea, vaginal bleeding or discharge. The CT of the abdomen shows enlarged displaced spleen into the left lower quadrant/pelvis consistent with wondering spleen. There is swirling of the splenic vasculature in the left upper quadrant concerning for torsion. The patient was discussed with the surgeon coal or ore controller who requested the patient to be admitted to ICU. Review of Systems Constitutional: DENIES: Diaphoretic episodes, Fatigue, Fever, Weight gain, Weight loss, Chills, Dizziness, Change in appetite, Night Sweats Endocrine: DENIES: Abnorml menstrual pattern, Heat/cold intolerance, Polydipsia , Polyuria, Polyphagia Eyes: DENIES: Blurred vision, Diplopia, Eye inflammation, Eye pain, Vision loss , Photosensitivity, Double Vision Ears, nose, mouth, throat: DENIES: Tinnitus, Hearing loss, Vertigo, Nasal discharge, Oral lesions, Throat pain, Hoarseness, Ear Pain, Running Nose, Epistaxis, Sinus Pain, Toothache, Odynophagia Respiratory: DENIES: Apneas, Cough, Snoring, Wheezing, Hemoptysis, Sputum production, Shortness of breath Cardiovascular: DENIES: Chest pain, Palpitations, Syncope, Dyspnea on Exertion , PND, Lower Extremity Edema, Orthopnea, Claudication Gastrointestinal: COMPLAINS OF: Abdominal pain, DENIES: Black stools, Bloody stools, Constipation, Diarrhea, Nausea, Vomiting, Difficulty Swallowing, Anorexia Genitourinary: DENIES: Abnormal vaginal bleeding, Dysmenorrhea, Dyspareunia, Sexual dysfunction, Urinary frequency, Urinary incontinence, Urgency, Hematuria , Dysuria, Nocturia, Vaginal discharge Integumentary: DENIES: Abnormal pigmentation, Pruritus, Rash, Nail changes, Breast masses, Breast skin changes, Nipple discharge Hematologic/lymphatic: DENIES: Bruising, Lymphadenopathy Immunologic/allergic: DENIES: Eczema, Urticaria Neurologic: DENIES: Abnormal gait, Headache, Localized weakness, Paresthesias, Seizures, Speech Problems, Tremor, Poor Balance Psychiatric: DENIES: Anxiety, Confusion, Mood changes, Depression, Hallucinations, Agitation, Suicidal Ideation, Homicidal Ideation, Delusions Past Family Social History Allergies: Coded Allergies: latex (Unverified Allergy, Severe, LIGHT RASH, 07/04/17) naproxen (Unverified Allergy, Severe, PT SAYS MOTKT [place]AY - NURSE ASKED 0845, 07/04/17) sulfamethoxazole (Unverified Allergy, Intermediate, SWOLLEN LIPS, 07/04/17) trimethoprim (Unverified Allergy, Intermediate, SWOLLEN LIPS, 07/04/17) *MDRO Multi-Drug Resistant Organism (Verified Adverse Reaction, Unknown, ) NRSA Wounds 07/10/05, , 08/04/10 Past Medical History History of endocarditis one year ago Hepatitis C Past Surgical History Denies Reported Medications Reported Meds & Active Scripts Active No Active Prescriptions or Reported Medications Active Ordered Medications Current Medications Medications (Trade) Dose Ordered Sig/Luda Route PRN Reason Start Time Stop Time Status Last Admin Dose Admin Piperacillin Sod/ Tazobactam Sod 50 ml @ 100 mls/hr ONCE ONCE IV 07/04/17 05:30 07/04/17 05:59 Sodium Chloride 1,000 ml @ 999 mls/hr BOLUS ONCE IV 07/04/17 05:30 07/04/17 06:30 Family History No family History significant of early coronary artery disease Social History The patient smokes a pack of cigarettes a day. Positive IV drug use in the form of crack cocaine. No alcohol. Physical Exam Vital Signs Vital Signs Date Time Temp Pulse Resp B/P (MAP) Pulse Ox O2 Delivery O2 Flow Rate FiO2 07/04/17 02:00 98.4 99 16 124/77 (93) 98 Physical Exam GENERAL: Well-nourished, well-developed patient. In moderate distress SKIN: Warm and dry. HEAD: Normocephalic. EYES: No scleral icterus. No injection or drainage. NECK: Supple, trachea midline. No JVD or lymphadenopathy. CARDIOVASCULAR: Regular rate and rhythm without murmurs, gallops, or rubs. RESPIRATORY: Breath sounds equal bilaterally. No accessory muscle use. GASTROINTESTINAL: Abdomen soft, nondistended, tender to palpation in all 4 quadrants MUSCULOSKELETAL: No cyanosis, or edema. BACK: Nontender without obvious deformity. NEURO EXAM: GCS: 15 Mental Status: The patient is alert and oriented to person, place, and time with normal speech. Laboratory Laboratory Tests Test 07/04/17 03:10 White Blood Count 26.9 Red Blood Count 4.28 Hemoglobin 11.8 Hematocrit 34.7 Mean Corpuscular Volume 81.1 Mean Corpuscular Hemoglobin 27.6 Mean Corpuscular Hemoglobin Concent 34.1 Red Cell Distribution Width 15.6 Platelet Count 153 Mean Platelet Volume 12.9 Neutrophils (%) (Auto) 91.9 Lymphocytes (%) (Auto) 2.2 Monocytes (%) (Auto) 5.7 Eosinophils (%) (Auto) 0.1 Basophils (%) (Auto) 0.1 Neutrophils # (Auto) 24.8 Lymphocytes # (Auto) 0.6 Monocytes # (Auto) 1.5 Eosinophils # (Auto) 0.0 Basophils # (Auto) 0.0 CBC Comment AUTO DIFF Differential Total Cells Counted 100 Neutrophils % (Manual) 85 Band Neutrophils % 8 Lymphocytes % 1 Monocytes % 6 Neutrophils # (Manual) 25.0 Differential Comment FINAL DIFF MANUAL Toxic Vacuolation PRESENT Dohle Bodies PRESENT Platelet Estimate NORMAL Platelet Morphology Comment NORMAL Basophilic Stippling FAINT Urine Color LIGHT-ORANGE Urine Turbidity CLOUDY Urine pH 5.5 Urine Specific [place] 1.029 Urine Protein 100 Urine Glucose (UA) NEG Urine Ketones NEG Urine Occult Blood SMALL Urine Nitrite NEG Urine Bilirubin NEG Urine Urobilinogen 2.0 Urine Leukocyte Esterase NEG Urine WBC 2 Urine Amorphous Sediment OCC Urine Mucus FEW Microscopic Urinalysis Comment CULT NOT INDICATED Blood Urea Nitrogen 39 Creatinine 1.37 Random Glucose 91 Total Protein 9.1 Albumin 3.4 Calcium Level 9.1 Alkaline Phosphatase 99 Aspartate Amino Transf (AST/SGOT) 40 Alanine Aminotransferase (ALT/SGPT) 10 Total Bilirubin 0.7 Sodium Level 127 Potassium Level 4.4 Chloride Level 88 Carbon Dioxide Level 26.4 Anion Gap 13 Estimat Glomerular Filtration Rate 44 Lipase 84 Human Chorionic Gonadotropin, Quant LESS THAN 1 Result Diagram: 07/04/17 0310 07/04/17 0310 Imaging Last 24 hours Impressions Abdomen/Pelvis CT 07/04/17 0000 Signed Impressions: Service Date/Time: Tuesday, July 04, 2017 04:20 - CONCLUSION: 1. Enlarged displaced spleen into the left lower quadrant/pelvis consistent with wondering spleen. There is swirling of the splenic vasculature in the left upper quadrant concerning for torsion. Cannot evaluate for associated splenic infarction given the lack of IV contrast. 2. Trace amount of isodense ascites concerning for hemoperitoneum. Findings were personally discussed with Dr. Parada. Art Noel MD Septic Shock Reassessment Septic shock perfusion: reassessment completed Caprini VTE Risk Assessment Caprini VTE Risk Assessment: Mod/High Risk (score >= 2) Caprini Risk Assessment Model Point Value = 1 Point Value = 2 Point Value = 3 Point Value = 5 Age 41-60 Minor surgery BMI > 25 kg/m2 Swollen legs Varicose veins or History of unexplained or recurrent spontaneous Oral contraceptives or hormone replacement Sepsis (< 1 month) Serious lung disease, including pneumonia (< 1 month) Abnormal pulmonary function Acute myocardial infarction Congestive heart failure (< 1 month) History of inflammatory bowel disease Medical patient at bed rest Age 61-74 Arthroscopic surgery Major open surgery (> 45 min) Laparoscopic surgery (> 45 min) Malignancy Confined to bed (> 72 hours) Immobilizing plaster cast Central venous access Age >= 75 History of VTE Family history of VTE Factor V Leiden Prothrombin 27000H Lupus anticoagulant Anticardiolipin antibodies Elevated serum homocysteine Heparin-induced thrombocytopenia Other congenital or acquired thrombophilia Stroke (< 1 month) Elective arthroplasty Hip, pelvis, or leg fracture Acute spinal cord injury (< 1 month) Prophylaxis Regimen Total Risk Factor Score Risk Level Prophylaxis Regimen 0-1 Low Early ambulation 2 Moderate Order ONE of the following: *Sequential Compression Device (SCD) *Heparin 5000 units SQ BID 3-4 Higher Order ONE of the following medications: *Heparin 5000 units SQ TID *Enoxaparin/Lovenox 40 mg SQ daily (WT < 150 kg, CrCl > 30 mL/min) *Enoxaparin/Lovenox 30 mg SQ daily (WT < 150 kg, CrCl > 10-29 mL/min) *Enoxaparin/Lovenox 30 mg SQ BID (WT < 150 kg, CrCl > 30 mL/min) AND/OR *Sequential Compression Device (SCD) 5 or more Highest Order ONE of the following medications: *Heparin 5000 units SQ TID (Preferred with Epidurals) *Enoxaparin/Lovenox 40 mg SQ daily (WT < 150 kg, CrCl > 30 mL/min) *Enoxaparin/Lovenox 30 mg SQ daily (WT < 150 kg, CrCl > 10-29 mL/min) *Enoxaparin/Lovenox 30 mg SQ BID (WT < 150 kg, CrCl > 30 mL/min) AND *Sequential Compression Device (SCD) Assessment and Plan Assessment and Plan Abdominal pain - Splenic torsion versus infarct - CT abdomen with contrast stat - General surgery consult Dr. Vinson notified by ED attending Leukocytosis - IVDU - Broad-spectrum antibiotic - Panculture - Follow-up cultures and de-escalate per sensitivity if any Hepatitis C - Monitor coags - Supportive care DVT GI prophylaxis - Teds SCDs - Pharmacological DVT prophylaxis per surgeon - Pepcid Critical Care: The total critical care time was 35 minutes. Time to perform other separately billable procedures was not included in the critical care time. Olman Louis MD Jul 04, 2017 05:58
[2017-07-04 05:59] LABS: PROTHROMBIN TIME - PATIENT 10.5 SEC (9.8-11.6)
--- NOTE | 2017-07-04 06:21 | RADRPT ---
EXAM DATE/TIME: 07/04/2017 05:40 [facility] COMPARISON: No previous studies available for comparison. INDICATIONS : Abdominal pain. Abnormal non contrast CT. IV CONTRAST: 100 cc Omnipaque 350 (iohexol) IV ORAL CONTRAST: No oral contrast ingested. RADIATION DOSE: 4.72 CTDIvol (mGy) MEDICAL HISTORY : Hepatitis. SURGICAL HISTORY : None. ENCOUNTER: Subsequent ACUITY: 1 day PAIN SCALE: 8/10 LOCATION: abdomen TECHNIQUE: Volumetric scanning of the abdomen and pelvis was performed. Using automated exposure control and ad justment of the mA and/or kV according to patient size, radiation dose was kept as low as reasonably achievable to obtain optimal diagnostic quality images. DICOM format image data is available electro nically for review and comparison. FINDINGS: Redemonstration of enlarged inferiorly displaced spleen with swirling splenic vasculature in the left upper quadrant. Although the splenic artery is patent there is only a very small portion of the sple en that demonstrates enhancement. The spleen is effectively not enhancing. There is redemonstration of trace amount of nearly isodense ascites. Remainder of the exam is unchang ed. CONCLUSION: 1. Enlarged inferiorly displaced spleen with whirling splenic vasculature. Splenic artery is patent a lthough there is only a very subtle small amount of residual splenic enhancement. The spleen is large ly not enhancing consistent with splenic infarction. 2. Persistent trace isodense ascites which may reflect hemoperitoneum.. Art Noel MD on July 04, 2017 at 6:13 Board Certified Radiologist. This report was verified electronically.
--- NOTE | 2017-07-04 07:28 | MB ---
cc: GIOVANALENAKARO LIMA DATE OF CONSULTATION: 07/04/2017 CHIEF COMPLAINT Chief complaint is a splenic infarction, abdominal pain hemoperitoneum. REQUESTING PHYSICIAN: Dr. Parada, Emergency room physician HISTORY OF PRESENT ILLNESS The patient is a 36-year-old female who has history of drug abuse and homelessness who presented to [facility] emergency department via ambulance for abdominal pain. The patient is somewhat tachycardic with the normotensive with a distended severely painful abdomen with guarding and possible peritonitis. A CT scan was ordered and did show a torsion of the splenic vasculature causing a splenic infarction with possible hemoperitoneum. The patient underwent fluid resuscitation was admitted to the Intensive Care Unit to the timber feller for management and general surgery was consulted urgently. The patient states that she has never had pain like this before the pain is not worse a last 2 days. She has a now severe 10/10 pain. She denies any nausea, vomiting, constipation, diarrhea, fevers, chills or night sweats. No previous abdominal surgeries. Denies any chest pain, shortness of breath or neurologic symptoms. REVIEW OF SYSTEMS A 12-point review of systems was conducted with the patient and is negative except for the pertinent positives detailed above in history present illness. PAST MEDICAL HISTORY: History of hepatitis C IV drug use endocarditis homelessness. PAST SURGICAL HISTORY None. ALLERGIES LATEX NAPROXEN SULFAMETHOXAZOLE TRIMETHOPRIM SOCIAL HISTORY IV drug use, cigarette use. Denies alcohol use. HOME MEDICATIONS: None. FAMILY HISTORY Noncontributory. PHYSICAL EXAMINATION: VITAL SIGNS: Temperature 98.4 degrees, pulse is 107, blood pressure 07/08/1980, O2 saturation 90%. IN GENERAL: The patient is a thin non well appearing 36-year-old female in no acute distress. HEAD, EYES, EARS, NOSE, AND THROAT: Head normocephalic, atraumatic. Pupils round and, to light. Sclerae is anicteric. Oral cavity is clear. Airway is patent. NECK: Neck is supple. No JVD. LUNGS: Breath sounds present bilaterally. Nonlabored breathing pattern. HEART: The heart is regular rhythm. No murmurs. ABDOMEN: Soft. Mildly distended with voluntary guarding and diffuse tenderness consistent with diffuse peritonitis. RECTUM: Rectal Exam was deferred. BACK: No costovertebral angle tenderness. EXTREMITIES: No clubbing, cyanosis or edema. Multiple scars from likely IV drug use. NEUROLOGIC: The patient is awake, alert, oriented times three. Judgment and insight for purposes of medical decision making seemed to be intact. Nonfocal peripheral exam. Cranial nerves II-XII are intact. LABORATORY FINDINGS: Laboratory values hemoglobin 11.8, white blood cell count 26.9. IMAGING: Imaging showed shows torsion of the splenic artery and vein and incentive infarction with likely hemoperitoneum. PLAN The patient is a 36-year-old female with splenic infarction, hemoperitoneum with peritonitis. Due to the severe torsion and patient potentially to be unstable potential with potential intraperineal bleeding. I felt it was in the patients best interest to undergo urgent operation. I explained this to the patient and consent the patient for exploratory laparotomy. I did explain that she would likely have to remove her spleen but depending on what we find, other operations may need to be preformed in her best interest. We did attempt to contact the patient's father who I have left a message he was not available, we will proceed her to the operating room urgently and follow along with the patient. Thank very much for this consultation. MD BENNETT Rojas/tony /6:49 AM /7:12 AM
[2017-07-04] MEDS ORDERED: ceFAZolin 2 GM PREMIX 50 ML ONE (07:44)
[2017-07-04] MEDS ORDERED: VANCOMYCIN HCL 1000 MG VIAL ONE (07:58)
[2017-07-04] MEDS ORDERED: VANCOMYCIN 1,000 MG/NS 250 ML IV SCH ×2 (08:00)
[2017-07-04] MEDS ORDERED: SUGAMMADEX SODIUM 200 MG/2 ML VIAL IV PUSH ONE (08:21)
[2017-07-04] MEDS: D5-NS + KCL 20 MEQ INJ 1,000 ML IV SCH ×2 (08:52→16:52)
[2017-07-04] MEDS ORDERED: FAMOTIDINE 20 MG/2 ML VIAL IV PUSH SCH (09:00)
[2017-07-04] MEDS: SODIUM CHLORIDE 0.9% FLUSH 10 ML FLUSH IV FLUSH SCH ×4 (09:00→20:23)
[2017-07-04] MEDS ORDERED: BENZOCAINE 20% ORAL SPR 60 ML CAN MT PRN (09:00)
[2017-07-04] MEDS: FAMOTIDINE 20 MG/2 ML VIAL IV PUSH SCH ×2 (09:00→20:21)
[2017-07-04] MEDS: DOCUSATE SODIUM 50 MG/SENNA 8.6 MG TAB PO SCH ×3 (09:00→21:00)
[2017-07-04] MEDS: PCA - TOTAL MG MORPHINE DELIVERED PER SHIFT SCH ×3 (09:00→22:00)
[2017-07-04] MEDS ORDERED: VANCOMYCIN INJ 1,000 MG in SODIUM CHLOR 0.9% 250 ML INJ 250 ML IV SCH (09:00)
[2017-07-04] MEDS ORDERED: Post-op Orders (for Pharmacy) XX ONE (09:00)
[2017-07-04] MEDS ORDERED: NALOXONE HCL 0.4 MG/ML AMP IV PUSH PRN ×2 (09:00)
[2017-07-04] MEDS ORDERED: diphenhydrAMINE HCL 50 MG/ML VIAL IV PUSH PRN (09:00)
[2017-07-04] MEDS ORDERED: *morphine SULFATE 10 MG/ML PERIprocedure ONLY ONE (09:01)
[2017-07-04] MEDS ORDERED: MIDAZOLAM HCL 2 MG/2 ML VIAL ONE (09:03)
[2017-07-04] MEDS ORDERED: DO NOT ADM ANY ANTICOAGULANT DRUGS PRN (09:15)
[2017-07-04] MEDS: ACETAMINOPHEN 1000 MG/100 ML 100 ML IV SCH ×3 (09:31→20:23)
[2017-07-04] MEDS: MORPHINE SULFATE 30 MG/30 ML PCA IV SCH ×4 (09:33→22:47)
--- NOTE | 2017-07-04 10:03 | RADRPT ---
EXAM DATE/TIME: 07/04/2017 09:37 [place] COMPARISON: CHEST SINGLE AP, January 19, 2017, 23:47. INDICATIONS : Central line placement. MEDICAL HISTORY : None. SURGICAL HISTORY : None. ENCOUNTER: Initial ACUITY: 1 day PAIN SCORE: 0/10 LOCATION: Bilateral chest FINDINGS: The lungs are clear without infiltrate, nodule, or mass. There is no appreciable pleural effusion fo r technique. Heart and mediastinum are unremarkable. NG tube is present with tip in the stomach. Rig ht IJ line is present with tip overlapping the expected region of the SVC. No definite pneumothorax i s seen for technique. CONCLUSION: No acute cardiopulmonary disease. Eunice Manrique MD on July 04, 2017 at 10:01 Board Certified Radiologist. This report was verified electronically.
[2017-07-04] MEDS: SODIUM CHLOR 0.9% 1000 ML INJ 1,000 ML IV SCH ×3 (10:36→21:42)
--- NOTE | 2017-07-04 11:14 | HHI.PR ---
Subjective Subjective Notes sleepy after surgery, RN reports no problems Objective Vitals/I&O Vital Signs Date Time Temp Pulse Resp B/P (MAP) Pulse Ox O2 Delivery O2 Flow Rate FiO2 07/04/17 10:39 16 07/04/17 10:00 110 07/04/17 10:00 100 Room Air 07/04/17 10:00 98.5 138/86 (103) 07/04/17 08:56 6 Labs Laboratory Tests Test 07/04/17 03:10 07/04/17 05:35 07/04/17 05:36 White Blood Count 26.9 Red Blood Count 4.28 Hemoglobin 11.8 Hematocrit 34.7 Mean Corpuscular Volume 81.1 Mean Corpuscular Hemoglobin 27.6 Mean Corpuscular Hemoglobin Concent 34.1 Red Cell Distribution Width 15.6 Platelet Count 153 Mean Platelet Volume 12.9 Neutrophils (%) (Auto) 91.9 Lymphocytes (%) (Auto) 2.2 Monocytes (%) (Auto) 5.7 Eosinophils (%) (Auto) 0.1 Basophils (%) (Auto) 0.1 Neutrophils # (Auto) 24.8 Lymphocytes # (Auto) 0.6 Monocytes # (Auto) 1.5 Eosinophils # (Auto) 0.0 Basophils # (Auto) 0.0 CBC Comment AUTO DIFF Differential Total Cells Counted 100 Neutrophils % (Manual) 85 Band Neutrophils % 8 Lymphocytes % 1 Monocytes % 6 Neutrophils # (Manual) 25.0 Differential Comment FINAL DIFF MANUAL Toxic Vacuolation PRESENT Dohle Bodies PRESENT Platelet Estimate NORMAL Platelet Morphology Comment NORMAL Basophilic Stippling FAINT Urine Color LIGHT-ORANGE Urine Turbidity CLOUDY Urine pH 5.5 Urine Specific [place] 1.029 Urine Protein 100 Urine Glucose (UA) NEG Urine Ketones NEG Urine Occult Blood SMALL Urine Nitrite NEG Urine Bilirubin NEG Urine Urobilinogen 2.0 Urine Leukocyte Esterase NEG Urine WBC 2 Urine Amorphous Sediment OCC Urine Mucus FEW Microscopic Urinalysis Comment CULT NOT INDICATED Blood Urea Nitrogen 39 Creatinine 1.37 Random Glucose 91 Total Protein 9.1 Albumin 3.4 Calcium Level 9.1 Alkaline Phosphatase 99 Aspartate Amino Transf (AST/SGOT) 40 Alanine Aminotransferase (ALT/SGPT) 10 Total Bilirubin 0.7 Sodium Level 127 Potassium Level 4.4 Chloride Level 88 Carbon Dioxide Level 26.4 Anion Gap 13 Estimat Glomerular Filtration Rate 44 Total Creatine Kinase 227 Creatine Kinase MB 7.0 Creatine Kinase MB % 3.1 Lipase 84 Human Chorionic Gonadotropin, Quant LESS THAN 1 Urine Opiates Screen NEG Urine Barbiturates Screen NEG Urine Amphetamines Screen POS Urine Benzodiazepines Screen NEG Urine Cocaine Screen POS Urine Cannabinoids Screen NEG Lactic Acid Level 1.0 Prothrombin Time 10.5 Prothromb Time International Ratio 1.0 Activated Partial Thromboplast Time 28.2 Date/Time Source Procedure Growth Status 07/04/17 05:36 Blood Peripheral Aerobic Blood Culture Pending Received 07/04/17 05:36 Blood Peripheral Anaerobic Blood Culture Pending Received 07/04/17 03:10 Urine Catheterized Urine Urine Culture Pending Received Abdomen: Non-distended, Post-op tenderness Narrative Exam drain with no output at all, minimal clear fluid A/P Assessment and Plan POD 0 splenectomy stable post op labs in am Andrea Powell MD Jul 04, 2017 11:14
[2017-07-04] MEDS: PIPERACIL-TAZO 4.5 GM PREMIX 100 ML IV SCH ×3 (11:15→23:47)
[2017-07-04] MEDS ORDERED: DEXAMETHASONE SOD PHOS 4 MG/ML VIAL IV ONE (12:00)
[2017-07-04] MEDS ORDERED: ROCURONIUM INJ 50 MG/5 ML SYRINGE IV PUSH ONE (12:00)
[2017-07-04] MEDS ORDERED: PROPOFOL 200 MG/20 ML AMP IV ONE (12:00)
[2017-07-04] MEDS ORDERED: ONDANSETRON HCL 4 MG/2 ML VIAL IV PUSH ONE (12:00)
[2017-07-04] MEDS ORDERED: LIDOCAINE HCL 1% PF 5 ML SYRINGE OTHER ONE (12:00)
--- NOTE | 2017-07-04 17:48 | HHI.CCPN ---
Subjective Remarks/Hospital Course 36-year-old female with past medical history of hepatitis C, IV drug use, endocarditis last year and homelessness presents today with complains abdominal pain for 2 days. Associated with nausea and vomiting. Said she has not had a bowel movement for a while. Denies any fever, chest pain, dysuria, hematuria, diarrhea, vaginal bleeding or discharge. The CT of the abdomen shows enlarged displaced spleen into the left lower quadrant/pelvis consistent with wondering spleen. There is swirling of the splenic vasculature in the left upper quadrant concerning for torsion. The patient was discussed with the surgeon banquet houseperson who requested the patient to be admitted to ICU. 07/04: Back from OR after emergency splenectomy for engorged, infarcted spleen. Stable hemodynamics and breathing comfortably after extubation. Objective Vital Signs Date Time Temp Pulse Resp B/P (MAP) Pulse Ox O2 Delivery O2 Flow Rate FiO2 07/04/17 17:17 16 07/04/17 16:00 97.7 91 118/78 (91) 100 07/04/17 10:00 Room Air 07/04/17 08:56 6 Intake and Output 07/04/17 07/04/17 07/05/17 08:00 16:00 00:00 Intake Total 50 ml 1550 ml 1000 ml Output Total 870 ml Balance 50 ml 680 ml 1000 ml Result Diagram: 07/04/17 0310 07/04/17 0310 Imaging Last 24 hours Impressions Abdomen/Pelvis CT 07/04/17 0000 Signed Impressions: Service Date/Time: Tuesday, July 04, 2017 04:20 - CONCLUSION: 1. Enlarged displaced spleen into the left lower quadrant/pelvis consistent with wondering spleen. There is swirling of the splenic vasculature in the left upper quadrant concerning for torsion. Cannot evaluate for associated splenic infarction given the lack of IV contrast. 2. Trace amount of isodense ascites concerning for hemoperitoneum. Findings were personally discussed with Dr. Lau. Art Noel MD Objective Remarks GENERAL: Well-nourished, well-developed patient. In moderate distress SKIN: Warm and dry. HEAD: Normocephalic. EYES: No scleral icterus. No injection or drainage. NECK: Supple, trachea midline. No JVD or lymphadenopathy. CARDIOVASCULAR: Regular rate and rhythm without murmurs, gallops, or rubs. RESPIRATORY: Breath sounds equal bilaterally. No accessory muscle use. GASTROINTESTINAL: Postsurgical, nondistended. Quiet. MUSCULOSKELETAL: No cyanosis, or edema. Well perfused. NEURO EXAM: Moves 4 limbs, conversant. A/P Assessment and Plan Abdominal pain - Splenic torsion versus infarct - CT abdomen with contrast stat - General surgery consult Dr. Aleman -> to OR. Leukocytosis - IVDU - Broad-spectrum antibiotic - Panculture - Follow-up cultures and de-escalate per sensitivity if any Hepatitis C - Monitor coags - Supportive care DVT GI prophylaxis - Teds SCDs - Pharmacological DVT prophylaxis per surgeon - Pepcid Overall impression: Uneventful immediate postoperative course. Watch for narcotic withdrawal. Janak Borrero MD Jul 04, 2017 17:48
[2017-07-05] VITALS (11 sets, daily range): BP systolic 99–111; BP diastolic 61–67; PULSE 74–82; RESP 12–22; TEMP 97.2–97.9; O2SAT 96–100
[2017-07-05] MEDS: D5-NS + KCL 20 MEQ INJ 1,000 ML IV SCH ×3 (00:53→17:09)
[2017-07-05] MEDS: VANCOMYCIN 1,000 MG/NS 250 ML IV SCH ×4 (01:43→20:12)
[2017-07-05] MEDS: ACETAMINOPHEN 1000 MG/100 ML 100 ML IV SCH ×4 (02:57→20:06)
[2017-07-05] MEDS: CHLORHEXIDINE GLUCONATE 2 % 1 PACK (2 CLOTHS) TOP SCH (04:00)
[2017-07-05] MEDS: PIPERACIL-TAZO 4.5 GM PREMIX 100 ML IV SCH ×3 (05:55→17:09)
[2017-07-05] MEDS: HEPARIN SODIUM - SQ 10,000 UNITS/ML VIAL SQ SCH ×3 (05:57→20:47)
[2017-07-05] MEDS: PCA - TOTAL MG MORPHINE DELIVERED PER SHIFT SCH ×3 (06:00→20:45)
[2017-07-05 06:14] LABS: INTERNATIONAL NORMALIZED RATIO 1.1 RATIO; PROTHROMBIN TIME - PATIENT 10.7 SEC (9.8-11.6)
[2017-07-05 06:19] LABS: AUTOMATED NEUTROPHIL # 9.4 TH/MM3 (1.8-7.7); HEMATOCRIT 21.1 % (35.0-46.0); HEMOGLOBIN 7.2 GM/DL (11.6-15.3); LYMPH % 2.4 % (9.0-44.0); LYMPHOCYTE # 0.2 TH/MM3 (1.0-4.8); MEAN CELL VOLUME 82.6 FL (80.0-100.0); MEAN CORPUSCULAR HGB CONC 33.9 % (32.0-36.0); MEAN PLATELET VOLUME 11.3 FL (7.0-11.0); MONOCYTE # 0.6 TH/MM3 (0-0.9); NEUT % 91.6 % (16.0-70.0); PLATELET COUNT 198 TH/MM3 (150-450); RED BLOOD COUNT 2.56 MIL/MM3 (4.00-5.30); RED CELL DISTRIBUTION WIDTH 15.9 % (11.6-17.2); WHITE BLOOD COUNT 10.2 TH/MM3 (4.0-11.0)
[2017-07-05 06:27] LABS: ALT (GPT) 9 U/L (10-53); AST (GOT) 16 U/L (15-37); BICARBONATE 27.5 MEQ/L (21.0-32.0); BLOOD UREA NITROGEN 17 MG/DL (7-18); CALCIUM 7.8 MG/DL (8.5-10.1); CHLORIDE 105 MEQ/L (98-107); CREATININE 0.63 MG/DL (0.50-1.00); GLOMERULAR FILTRATION RATE 108 ML/MIN (>89); GLUCOSE,RANDOM 115 MG/DL (74-106); MAGNESIUM 2.7 MG/DL (1.5-2.5); PHOSPHORUS 2.5 MG/DL (2.5-4.9); SODIUM (NA) 136 MEQ/L (136-145)
[2017-07-05 06:31] LABS: ALKALINE PHOSPHATASE 56 U/L (45-117); TOTAL BILIRUBIN ADULT 0.2 MG/DL (0.2-1.0); TOTAL PROTEIN 6.1 GM/DL (6.4-8.2)
[2017-07-05] MEDS: DOCUSATE SODIUM 50 MG/SENNA 8.6 MG TAB PO SCH ×2 (09:52→20:45)
[2017-07-05] MEDS: FAMOTIDINE 20 MG/2 ML VIAL IV PUSH SCH ×2 (09:52→20:15)
--- NOTE | 2017-07-05 09:52 | HHI.CCPN ---
Subjective Remarks/Hospital Course 36-year-old female with past medical history of hepatitis C, IV drug use, endocarditis last year and homelessness presents today with complains abdominal pain for 2 days. Associated with nausea and vomiting. Said she has not had a bowel movement for a while. Denies any fever, chest pain, dysuria, hematuria, diarrhea, vaginal bleeding or discharge. The CT of the abdomen shows enlarged displaced spleen into the left lower quadrant/pelvis consistent with wondering spleen. There is swirling of the splenic vasculature in the left upper quadrant concerning for torsion. The patient was discussed with the surgeon head refrigeration engineer who requested the patient to be admitted to ICU. 07/04: Back from OR after emergency splenectomy for engorged, infarcted spleen. Stable hemodynamics and breathing comfortably after extubation. 07/05: Warm, well perfused. Hgb 7.2. The engorged spleen contained a lot of blood by report. No signs of active bleeding. Normotensive. Improved hydration. Objective Vital Signs Date Time Temp Pulse Resp B/P (MAP) Pulse Ox O2 Delivery O2 Flow Rate FiO2 07/05/17 06:00 82 07/05/17 04:00 97.7 19 102/67 (79) 100 07/04/17 19:00 Room Air 07/04/17 08:56 6 Intake and Output 07/05/17 07/05/17 07/06/17 08:00 16:00 00:00 Intake Total 300 ml Output Total 920 ml Balance -620 ml Result Diagram: 07/05/17 0545 07/05/17 0545 Imaging Last 24 hours Impressions Abdomen/Pelvis CT 07/04/17 0000 Signed Impressions: Service Date/Time: Tuesday, July 04, 2017 04:20 - CONCLUSION: 1. Enlarged displaced spleen into the left lower quadrant/pelvis consistent with wondering spleen. There is swirling of the splenic vasculature in the left upper quadrant concerning for torsion. Cannot evaluate for associated splenic infarction given the lack of IV contrast. 2. Trace amount of isodense ascites concerning for hemoperitoneum. Findings were personally discussed with Dr. Lau. Art Noel MD Objective Remarks GENERAL: Well-nourished, well-developed patient. Calm. SKIN: Warm and dry. HEAD: Normocephalic. EYES: No scleral icterus. No injection or drainage. NECK: Supple, trachea midline. Airway clear. CARDIOVASCULAR: Regular rate and rhythm without murmurs, gallops, or rubs. No JVD. RESPIRATORY: Breath sounds equal bilaterally. No accessory muscle use. Comfortable pattern. GASTROINTESTINAL: Postsurgical, nondistended. BS present. MUSCULOSKELETAL: No cyanosis, or edema. Well perfused. NEURO EXAM: Moves 4 limbs, conversant. O X 3, alert. A/P Assessment and Plan Abdominal pain - Splenic torsion versus infarct - CT abdomen with contrast stat - General surgery consult Dr. Aleman -> to OR, splenectomy. - Encapsulated organism vaccination prior to discharge. Leukocytosis - IVDU - Broad-spectrum antibiotic - Panculture - Follow-up cultures and de-escalate per sensitivity if any - Gram positive [place] in blood unusual - will followup. No signs of sepsis. Hepatitis C - Monitor coags - Supportive care DVT GI prophylaxis - Teds SCDs - Pharmacological DVT prophylaxis per surgeon - Pepcid Overall impression: Continued uneventful immediate postoperative course. Follow Hgb a.m. Watch for narcotic withdrawal. Mobilize. Feed per Surgery Service. Janak Borrero MD Jul 05, 2017 09:52
[2017-07-05] MEDS: SODIUM CHLORIDE 0.9% FLUSH 10 ML FLUSH IV FLUSH SCH ×2 (09:59→20:07)
--- NOTE | 2017-07-05 11:47 | HHI.PR ---
Subjective Subjective Notes stable postop, wants NG out, very thirsty Objective Vitals/I&O Vital Signs Date Time Temp Pulse Resp B/P (MAP) Pulse Ox O2 Delivery O2 Flow Rate FiO2 07/05/17 06:00 82 07/05/17 04:00 97.7 19 102/67 (79) 100 07/04/17 19:00 Room Air 07/04/17 08:56 6 Labs Laboratory Tests Test 07/04/17 20:00 07/05/17 05:45 Nasal Screen MRSA (PCR) MRSA DETECTED White Blood Count 10.2 Red Blood Count 2.56 Hemoglobin 7.2 Hematocrit 21.1 Mean Corpuscular Volume 82.6 Mean Corpuscular Hemoglobin 28.0 Mean Corpuscular Hemoglobin Concent 33.9 Red Cell Distribution Width 15.9 Platelet Count 198 Mean Platelet Volume 11.3 Neutrophils (%) (Auto) 91.6 Lymphocytes (%) (Auto) 2.4 Monocytes (%) (Auto) 6.0 Eosinophils (%) (Auto) 0.0 Basophils (%) (Auto) 0.0 Neutrophils # (Auto) 9.4 Lymphocytes # (Auto) 0.2 Monocytes # (Auto) 0.6 Eosinophils # (Auto) 0.0 Basophils # (Auto) 0.0 CBC Comment DIFF FINAL Differential Comment Prothrombin Time 10.7 Prothromb Time International Ratio 1.1 Activated Partial Thromboplast Time 28.2 Blood Urea Nitrogen 17 Creatinine 0.63 Random Glucose 115 Total Protein 6.1 Albumin 2.0 Calcium Level 7.8 Phosphorus Level 2.5 Magnesium Level 2.7 Alkaline Phosphatase 56 Aspartate Amino Transf (AST/SGOT) 16 Alanine Aminotransferase (ALT/SGPT) 9 Total Bilirubin 0.2 Sodium Level 136 Potassium Level 4.3 Chloride Level 105 Carbon Dioxide Level 27.5 Anion Gap 4 Estimat Glomerular Filtration Rate 108 Date/Time Source Procedure Growth Status 07/04/17 05:36 Blood Peripheral Aerobic Blood Culture - Preliminary NO GROWTH IN 1 DAY Resulted 07/04/17 05:36 Anaerobic Blood Culture - Preliminary Gram Positive Rods Resulted 07/04/17 03:10 Urine Catheterized Urine Urine Culture - Preliminary NO GROWTH IN 24 HOURS. Resulted Cardiovascular: Regular Lungs: Clear Abdomen: Non-distended, Post-op tenderness A/P Assessment and Plan 36yo female hx IV drug abuse s/p splenectomy for torsion, stable postop. BRIAN childers ok to floor will need triple VAC for splenectomy in 2-3 weeks after surgery Yaya Aleman MD Jul 05, 2017 11:47
[2017-07-05] MEDS: MORPHINE SULFATE 30 MG/30 ML PCA IV SCH (14:07)
--- NOTE | 2017-07-05 15:34 | MP ---
cc: KARO VITALE DATE OF SURGERY: 07/04/2017 PREOPERATIVE DIAGNOSIS: Splenic torsion infarction hemoperitoneum due to wandering spleen. 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 PROCEDURE: 1. Exploratory laparotomy 2. Splenectomy. 3. Abdominal washout. 4. Appendectomy. ATTENDING SURGEON: Dr. Vitale. CASINO GAMES DEALER: Staff. ANESTHESIA General FINDINGS 250 cc of hemoperitoneum with some inflammatory ascites, mild dilation of the appendix, ischemia, complete splenic infarction grossly with 720 degrees of rotation and torsion of the distal pancreas causing splenic infarction due to wandering spleen. No other intra-abdominal pathology. INDICATIONS FOR PROCEDURE The patient is a 36-year-old female who was brought to [facility] via ambulance for severe abdominal pain. The patient was found to be tachycardiac and CT scan showed torsion of the spleen with infarction and hemoperitoneum. The patient was brought urgently to the operating room for exploratory laparotomy after consent was obtained. The risks, benefits and alternatives were discussed with the patient and she agreed to undergo the procedure. DESCRIPTION OF PROCEDURE: The patient was taken to the operating placed in supine position, placed under general endotracheal anesthesia. The patient had a central line placed by anesthesia. The patient had Montesinos catheter placed by nursing staff. The abdomen was prepped and draped in sterile fashion. Time-out was performed. The abdomen was extended through an upper midline incision with a 15 blade scalpel. Bovie electrocautery used to dissect the subcutaneous tissue and over the midline fascia for the full length of the incision. The Ulises extra large wound retractor was placed into the wound without difficulty. We were then able to mobilize the omentum and some adhesions bluntly and identify the large infarcted appearing spleen and the left lower quadrant. This was actually immobilized with the Bovie electrocautery and with blunt dissection 360 degrees around the spleen was then delivered into our operative field. We then detorsed this a total of 720 degrees. Once I completely detorsed the spleen, we were able to identify the vascular as it entered the hilum of the spleen. We were able to separate and isolate the splenic artery and branches, again 2 to 3 cm proximal to the splenic hilum. We got around this with a right-angle and used the white load on the [place] stapler to divide these vessels. We had excellent hemostasis. We were then able to mobilize some of perisplenic tissue and skeletonized the tip of the pancreas at the area where it last appeared normal and likely contained the splenic vein as well. We placed a second white load on the [place] stapler across this and closed slowly and fired this without difficulty. The session was then free from the patient and passed off for permanent processing. There was no evidence of a pancreatic leak or bleeding. We had excellent hemostasis with the pancreas detorsed and under normal traction, the pancreas essentially laid back in its normal anatomic position, once the spleen had been removed and was no longer torsing on the pancreas. The remainder of the pancreas appeared viable without any pathology. We then irrigated out the abdomen with several liters of warm saline until all suctioning was clear. The only other intra-abdominal pathology was that there was some inflammation around the appendix which there was no obvious appendicitis which was clearly abnormal, rather red, injected appearing appendix, possibly just due to the vicinity of the spleen. However, I felt this was in the patient's best interest to remove the appendix as well. We did make a window at the base of the appendix and divide the mesentery with a 2-0 silk tie. We then used a white load on the [place] stapler to divide the appendix and this splayed into the cecum. This was passed off for permanent processing as well. The stump was intact with no evidence of any bleeding or problems. We then placed the small bowel back in the normal anatomic position. We placed the omentum back over the midline. The NG tube was in good position. We placed a 19-Thai round Neto drain in the left upper quadrant to the splenic fossa through a separate stab incision. We then closed the midline with a #1 loop PDS suture. We closed the skin with skin casi. The drain was sutured in place with a nylon suture placed to bulb suction. The patient was discontinued from anesthesia, taken to the PACU in stable condition after a dressing was placed. The patient tolerated the procedure well. No apparent complications. All counts were correct. I was present and scrubbed throughout the entire procedure. MD BENNETT Rojas/SANDRA /8:55 AM /3:07 PM CHAMP
[2017-07-05 18:02] LABS: HEMOGLOBIN 6.8 GM/DL (11.6-15.3)
[2017-07-05 18:03] LABS: HEMATOCRIT 20.6 % (35.0-46.0)
[2017-07-06] VITALS (8 sets, daily range): BP systolic 105–118; BP diastolic 68–85; PULSE 68–82; RESP 15–18; TEMP 96.3–98.3; O2SAT 92–99
[2017-07-06] MEDS: PIPERACIL-TAZO 4.5 GM PREMIX 100 ML IV SCH ×5 (00:06→23:28)
[2017-07-06] MEDS: MORPHINE SULFATE 30 MG/30 ML PCA IV SCH ×6 (00:06→23:30)
[2017-07-06] MEDS: D5-NS + KCL 20 MEQ INJ 1,000 ML IV SCH ×3 (00:52→23:29)
[2017-07-06] MEDS: ACETAMINOPHEN 1000 MG/100 ML 100 ML IV SCH (02:35)
[2017-07-06] MEDS: CHLORHEXIDINE GLUCONATE 2 % 1 PACK (2 CLOTHS) TOP SCH (02:38)
[2017-07-06] MEDS: PCA - TOTAL MG MORPHINE DELIVERED PER SHIFT SCH ×3 (05:38→22:00)
[2017-07-06] MEDS: HEPARIN SODIUM - SQ 10,000 UNITS/ML VIAL SQ SCH ×3 (05:38→22:27)
[2017-07-06] MEDS: SODIUM CHLORIDE 0.9% FLUSH 10 ML FLUSH IV FLUSH SCH ×2 (08:15→21:00)
[2017-07-06] MEDS: FAMOTIDINE 20 MG/2 ML VIAL IV PUSH SCH ×2 (08:15→22:24)
[2017-07-06] MEDS: DOCUSATE SODIUM 50 MG/SENNA 8.6 MG TAB PO SCH ×2 (08:15→22:25)
[2017-07-06] MEDS ORDERED: INFLUENZA VIRUS VACCINE (QUADRIVALENT) 0.5 ML SYR IM ONE (10:00)
[2017-07-06 12:56] LABS: HEMATOCRIT 31.7 % (35.0-46.0); HEMOGLOBIN 10.2 GM/DL (11.6-15.3)
[2017-07-06 13:15] LABS: CREATININE 0.6 MG/DL (0.50-1.00)
[2017-07-06 13:16] LABS: VANCOMYCIN TROUGH 4.7 MCG/ML (5.0-10.0)
[2017-07-06] MEDS ORDERED: PHARMACY ORDERED LAB ONE (13:45)
[2017-07-06] MEDS: VANCOMYCIN 1,000 MG/NS 250 ML IV SCH ×2 (14:20)
--- NOTE | 2017-07-06 14:35 | HHI.PR ---
Subjective Subjective Notes Resting in bed Upset because she wants ice cream Objective Vitals/I&O Vital Signs Date Time Temp Pulse Resp B/P (MAP) Pulse Ox O2 Delivery O2 Flow Rate FiO2 07/06/17 14:00 16 07/06/17 12:00 96.3 70 109/76 (87) 95 07/05/17 07:00 Room Air 07/04/17 08:56 6 Labs Laboratory Tests Test 07/05/17 17:40 07/06/17 12:30 Hemoglobin 6.8 10.2 Hematocrit 20.6 31.7 Creatinine 0.60 Estimat Glomerular Filtration Rate 114 Vancomycin Level Trough 4.7 Date/Time Source Procedure Growth Status 07/04/17 05:36 Blood Peripheral Aerobic Blood Culture - Preliminary NO GROWTH IN 2 DAYS Resulted 07/04/17 05:36 Anaerobic Blood Culture - Final Bacillus Species Not Anthracis Resulted 07/04/17 03:10 Urine Catheterized Urine Urine Culture - Final NO GROWTH IN 48 HOURS. Complete Cardiovascular: Regular Lungs: Clear Abdomen: Other (midlne incision with casi; c/d/i; minimal tenderness with palpation ) Extremities: No edema A/P Assessment and Plan 36 year old female with hx IV drug abuse POD2 splenectomy for torsion -Tolerating clear liquids; advance to regular diet -OOB and mobilize -BILL RECAPITULATION CLERK for pain control -Will need post op vaccinations in about two - three weeks Attending Statement The exam, history, and the medical decision-making described in the above note were completed with the assistance of the mid-level provider. I reviewed and agree with the findings presented. I attest that I had a [id number] encounter with the patient on the same day, and personally performed and documented my assessment and findings in the medical record. Abdominal exam: postop tenderness, no peritonitis or guarding, incision clean, dry, intact, drain with clear fluid pain controlled OOB await bowel function Roopa Cui Jul 06, 2017 14:35 Yaya Aleman MD Jul 10, 2017 12:57
--- NOTE | 2017-07-06 14:48 | HHI.PR ---
Subjective Remarks Follow up for anemia, splenic torsion s/p splenectomy in patient with a history of IVDU. Patient is currently doing well. She received one unit of PRBCs. She is using her RETIREMENT VILLAGE MANAGER for pain management. She has an IJ central line which is leaking. No fever, chills. She complains of abdominal pain. Objective Vitals Vital Signs Date Time Temp Pulse Resp B/P (MAP) Pulse Ox O2 Delivery O2 Flow Rate FiO2 07/06/17 14:26 16 07/06/17 14:00 16 07/06/17 12:00 96.3 70 16 109/76 (87) 95 07/06/17 10:29 17 07/06/17 10:06 16 07/06/17 08:00 97.5 68 16 108/74 (85) 97 07/06/17 06:14 16 07/06/17 05:38 16 07/06/17 05:19 97.4 74 16 108/68 (81) 95 07/06/17 02:29 97.6 73 16 105/73 99 07/06/17 02:04 97.5 82 15 112/73 98 07/06/17 00:06 17 07/06/17 00:00 98.3 79 16 109/73 (85) 97 07/05/17 20:45 16 07/05/17 20:00 97.2 77 18 111/67 (82) 96 07/05/17 16:07 97.5 75 12 99/61 (74) 100 07/05/17 16:05 75 I/O 07/05/17 07/05/17 07/05/17 07/06/17 07/06/17 07/06/17 07:00 15:00 23:00 07:00 15:00 23:00 Intake Total 550 ml 380 ml 2453 ml Output Total 920 ml 375 ml 820 ml Balance -370 ml 5 ml 1633 ml Intake Oral 380 ml 580 ml IV Total 550 ml 973 ml Packed Cells 900 ml Blood Product IV Normal Saline Flush 0 ml Output Urine Total 900 ml 350 ml 800 ml Stool Total 0 ml Drainage Total 20 ml 25 ml 20 ml # Voids 0 Result Diagram: 07/06/17 1230 07/06/17 1230 Imaging Last Impressions Chest X-Ray 07/04/17 0000 Signed Impressions: Service Date/Time: Tuesday, July 04, 2017 09:37 - CONCLUSION: No acute cardiopulmonary disease. Eunice Manrique MD Abdomen/Pelvis CT 07/04/17 0000 Signed Impressions: Service Date/Time: Tuesday, July 04, 2017 05:40 - CONCLUSION: 1. Enlarged inferiorly displaced spleen with whirling splenic vasculature. Splenic artery is patent although there is only a very subtle small amount of residual splenic enhancement. The spleen is largely not enhancing consistent with splenic infarction. 2. Persistent trace isodense ascites which may reflect hemoperitoneum.. Art Noel MD Objective Remarks GENERAL: Alert, Oriented x 3, NAD. IJ line in place, leaked when flushed. SKIN: Warm and dry. HEAD: Normocephalic. EYES: No scleral icterus. No injection or drainage. NECK: Supple, trachea midline. No JVD or lymphadenopathy. CARDIOVASCULAR: Regular rate and rhythm without murmurs, gallops, or rubs. RESPIRATORY: Breath sounds equal bilaterally. No accessory muscle use. GASTROINTESTINAL: Abdomen somewhat tender to palpation, s/p splenectomy. MUSCULOSKELETAL: No cyanosis, or edema. BACK: Nontender without obvious deformity. No CVA tenderness. Procedures s/p Splenectomy A/P Problem List: (1) Splenic infarction ICD Code: D73.5 - Infarction of spleen (2) IVDU (intravenous drug user) ICD Code: F19.90 - IVDU (intravenous drug user) Status: Chronic Assessment and Plan Ms. Greenberg is a 36 year old female with a history of Hep C, IVDU, endocarditis last year who presented to the ED with 2 day duration of abdominal pain and associated N/V. CT abd/Pelvis shows splenic infarction. Patient underwent emergent splenectomy for engorged, infarcted spleen. She was monitored in the ICU and received one unit of blood due to Hgb 7.2. Patient was normotensive in the ICU. She was subsequently transferred to the hospitalist service. - Acute splenic infarction - s/p emergent splenectomy - Patient has received influenza vaccine. - While 14 days after splenectomy would be preferable to give pneumococcal vaccine, we will likely give vaccine on the day of discharge. - Will give PCV13 (Prevnar 13) on the day of discharge and 8 weeks later, patient needs to get PPSV23 (Pneumovax 23) and thereafter every 5 years. - Patient is currently on Vancomycin and Zosyn. Blood culture one out of 2 bottles positive for bacillus sp (not anthrax). Will follow culture results. - Anemia - likely due to acute blood loss. - Patient received one unit. Her IJ central line is leaking. Her peripheral line is being used for RETIREMENT VILLAGE MANAGER. She does not want to disconnect RETIREMENT VILLAGE MANAGER pump. - Repeat H&H shows Hgb > 10. - No further blood transfusion unless Hgb < 7.0. - Hep C - IVDU - Counselled patient. - Outpatient follow up for Hep C. Full code. SCDs. Andrew Suresh DO Jul 06, 2017 14:48
[2017-07-07] VITALS: BP 112/83; PULSE 70; RESP 16; TEMP 96.9; O2SAT 93
[2017-07-07] MEDS: LORazepam 2 MG/ML VIAL IV PUSH PRN (01:33)
[2017-07-07] MEDS: CHLORHEXIDINE GLUCONATE 2 % 1 PACK (2 CLOTHS) TOP SCH ×2 (01:40→22:42)
[2017-07-07] MEDS ORDERED: VANCOMYCIN 1,000 MG/NS 250 ML IV SCH ×2 (02:00)
[2017-07-07] MEDS: PCA - TOTAL MG MORPHINE DELIVERED PER SHIFT SCH (06:00)
[2017-07-07] MEDS: HEPARIN SODIUM - SQ 10,000 UNITS/ML VIAL SQ SCH ×3 (06:04→22:00)
[2017-07-07] MEDS: PIPERACIL-TAZO 4.5 GM PREMIX 100 ML IV SCH (06:04)
[2017-07-07] MEDS: MORPHINE SULFATE 30 MG/30 ML PCA IV SCH (07:22)
[2017-07-07] MEDS: DOCUSATE SODIUM 50 MG/SENNA 8.6 MG TAB PO SCH ×2 (07:58→20:07)
[2017-07-07] MEDS: SODIUM CHLORIDE 0.9% FLUSH 10 ML FLUSH IV FLUSH SCH ×2 (07:59→20:05)
[2017-07-07] MEDS: FAMOTIDINE 20 MG/2 ML VIAL IV PUSH SCH ×2 (07:59→20:06)
[2017-07-07 08:00] VITALS: BP 119/89; PULSE 79; RESP 18; TEMP 96; O2SAT 93
[2017-07-07] MEDS ORDERED: oxyCODONE/ACETAMINOPHEN 7.5 MG/325 MG TAB PO PRN (09:45)
--- NOTE | 2017-07-07 09:59 | HHI.PR ---
Subjective Subjective Notes Resting in bed Concerned about pain control without HUMAN RESOURCES TRAINING MANAGER Reports got up once yesterday Objective Vitals/I&O Vital Signs Date Time Temp Pulse Resp B/P (MAP) Pulse Ox O2 Delivery O2 Flow Rate FiO2 07/07/17 08:00 96.0 79 18 119/89 (99) 93 07/05/17 07:00 Room Air 07/04/17 08:56 6 Labs Laboratory Tests Test 07/06/17 12:30 Hemoglobin 10.2 Hematocrit 31.7 Creatinine 0.60 Estimat Glomerular Filtration Rate 114 Vancomycin Level Trough 4.7 Date/Time Source Procedure Growth Status 07/04/17 05:36 Blood Peripheral Aerobic Blood Culture - Preliminary NO GROWTH IN 2 DAYS Resulted 07/04/17 05:36 Anaerobic Blood Culture - Final Bacillus Species Not Anthracis Resulted 07/04/17 03:10 Urine Catheterized Urine Urine Culture - Final NO GROWTH IN 48 HOURS. Complete Disinhibition Score: 22.68 Aggression Score: 14.00 Lability Score: 18.62 Agitated Behavior Total Score: 20 Cardiovascular: Regular Lungs: Clear Abdomen: Other (midline incision with casi; abdomen soft; minimal tenderness with palpation; KIRK with serous fluid ) Extremities: No edema A/P Assessment and Plan 36 year old female with hx IV drug abuse POD3 splenectomy for torsion -Tolerating regular diet -DC HUMAN RESOURCES TRAINING MANAGER; added Morphine for breakthrough pain and Percocet -DC fluid -Zosyn -OOB and mobilize---needs to be OOB atleast three times daily -DC external female catheter -Will need post op vaccinations in about two - three weeks -Discussed with Dr. Suresh Attending Statement The exam, history, and the medical decision-making described in the above note were completed with the assistance of the mid-level provider. I reviewed and agree with the findings presented. I attest that I had a [id number] encounter with the patient on the same day, and personally performed and documented my assessment and findings in the medical record. Abdominal exam: postop tenderness, no peritonitis or guarding, incision clean, dry, intact pain controlled advance diet, keep KIRK and watch for output Roopa Cui Jul 07, 2017 09:59 Yaya Aleman MD Jul 10, 2017 13:00
[2017-07-07] MEDS: oxyCODONE/ACETAMINOPHEN 7.5 MG/325 MG TAB PO PRN ×4 (10:45→22:43)
[2017-07-07 12:00] VITALS: BP 123/89; PULSE 80; RESP 18; TEMP 97.3; O2SAT 94
[2017-07-07] MEDS: MORPHINE SULFATE 2 MG/ML INJ IV PUSH PRN ×3 (12:53→20:08)
--- NOTE | 2017-07-07 13:18 | HHI.PR ---
Subjective Remarks Follow up for anemia, splenic torsion s/p splenectomy in patient with a history of IVDU. Patient is currently doing well. She still has abdominal pain. No fever , chills. OPERATIONS CONTROLLER pump discontinued. She is resting well. Per RN, patient is having a lot of drainage this afternoon. Objective Vitals Vital Signs Date Time Temp Pulse Resp B/P (MAP) Pulse Ox O2 Delivery O2 Flow Rate FiO2 07/07/17 12:00 97.3 80 18 123/89 (100) 94 07/07/17 08:00 96.0 79 18 119/89 (99) 93 07/07/17 07:22 12 07/07/17 06:00 14 07/07/17 00:00 96.9 70 16 112/83 (93) 93 07/06/17 23:30 12 07/06/17 22:00 12 07/06/17 20:00 97.7 76 16 116/85 (95) 92 07/06/17 19:05 16 07/06/17 16:00 97.8 68 18 118/76 (90) 93 07/06/17 14:26 16 07/06/17 14:00 16 I/O 07/06/17 07/06/17 07/06/17 07/07/17 07/07/17 07/07/17 07:00 15:00 23:00 07:00 15:00 23:00 Intake Total 2453 ml 100 ml 830 ml 250 ml 885 ml Output Total 820 ml 445 ml 1450 ml Balance 1633 ml 100 ml 385 ml -1200 ml 885 ml Intake Oral 580 ml 480 ml IV Total 973 ml 100 ml 350 ml 250 ml 885 ml Packed Cells 900 ml Blood Product IV Normal Saline Flush 0 ml Output Urine Total 800 ml 400 ml 1450 ml Drainage Total 20 ml 45 ml # Bowel Movements 0 Result Diagram: 07/06/17 1230 07/06/17 1230 Imaging Last Impressions Chest X-Ray 07/04/17 0000 Signed Impressions: Service Date/Time: Tuesday, July 04, 2017 09:37 - CONCLUSION: No acute cardiopulmonary disease. Eunice Manrique MD Abdomen/Pelvis CT 07/04/17 0000 Signed Impressions: Service Date/Time: Tuesday, July 04, 2017 05:40 - CONCLUSION: 1. Enlarged inferiorly displaced spleen with whirling splenic vasculature. Splenic artery is patent although there is only a very subtle small amount of residual splenic enhancement. The spleen is largely not enhancing consistent with splenic infarction. 2. Persistent trace isodense ascites which may reflect hemoperitoneum.. Art Noel MD Objective Remarks GENERAL: Alert, Oriented x 3, NAD. IJ line in place, leaked when flushed. SKIN: Warm and dry. HEAD: Normocephalic. EYES: No scleral icterus. No injection or drainage. NECK: Supple, trachea midline. No JVD or lymphadenopathy. CARDIOVASCULAR: Regular rate and rhythm without murmurs, gallops, or rubs. RESPIRATORY: Breath sounds equal bilaterally. No accessory muscle use. GASTROINTESTINAL: Abdomen somewhat tender to palpation, s/p splenectomy. MUSCULOSKELETAL: No cyanosis, or edema. BACK: Nontender without obvious deformity. No CVA tenderness. Procedures s/p Splenectomy A/P Problem List: (1) Splenic infarction ICD Code: D73.5 - Infarction of spleen (2) IVDU (intravenous drug user) ICD Code: F19.90 - IVDU (intravenous drug user) Status: Chronic Assessment and Plan Ms. Greenberg is a 36 year old female with a history of Hep C, IVDU, endocarditis last year who presented to the ED with 2 day duration of abdominal pain and associated N/V. CT abd/Pelvis shows splenic infarction. Patient underwent emergent splenectomy for engorged, infarcted spleen. She was monitored in the ICU and received one unit of blood due to Hgb 7.2. Patient was normotensive in the ICU. She was subsequently transferred to the hospitalist service. - Acute splenic infarction - s/p emergent splenectomy - Patient has received influenza vaccine. - While 14 days after splenectomy would be preferable to give pneumococcal vaccine, we will likely give vaccine on the day of discharge. - Will give PCV13 (Prevnar 13) on the day of discharge and 8 weeks later, patient needs to get PPSV23 (Pneumovax 23) and thereafter every 5 years. - Patient is currently on Vancomycin and Zosyn. Blood cx growing non-anthrax bacillus which is likely a contamination. - D/C Vanc/Zosyn and start Augmentin 875mg BID. - Anemia - likely due to acute blood loss. - Patient received one unit. - Repeat H&H shows Hgb > 10. - No further blood transfusion unless Hgb < 7.0. - Hep C - IVDU - Counselled patient. - Outpatient follow up for Hep C. Full code. SCDs. Discussed with General Surgery. Andrew Suresh DO Jul 07, 2017 13:18
[2017-07-07 16:00] VITALS: BP 113/73; PULSE 83; RESP 20; TEMP 98.4; O2SAT 96
[2017-07-07 20:00] VITALS: BP 110/68; PULSE 86; RESP 18; TEMP 97.9; O2SAT 96
[2017-07-07] MEDS: AMOXICILLIN/CLAVULANATE K 875 MG TAB PO SCH (20:06)
[2017-07-08] VITALS: BP 103/64; PULSE 84; RESP 18; TEMP 97.4; O2SAT 98
[2017-07-08] MEDS: MORPHINE SULFATE 2 MG/ML INJ IV PUSH PRN ×6 (00:12→20:58)
[2017-07-08] MEDS ORDERED: PHARMACY ORDERED LAB ONE (01:45)
[2017-07-08] MEDS: oxyCODONE/ACETAMINOPHEN 7.5 MG/325 MG TAB PO PRN ×5 (03:52→22:47)
[2017-07-08] MEDS: HEPARIN SODIUM - SQ 10,000 UNITS/ML VIAL SQ SCH ×3 (04:38→20:57)
[2017-07-08 08:00] VITALS: BP 111/75; PULSE 82; RESP 17; TEMP 96.1; O2SAT 98
[2017-07-08] MEDS: AMOXICILLIN/CLAVULANATE K 875 MG TAB PO SCH ×2 (08:52→20:08)
[2017-07-08] MEDS: DOCUSATE SODIUM 50 MG/SENNA 8.6 MG TAB PO SCH ×2 (08:53→20:07)
[2017-07-08] MEDS: FAMOTIDINE 20 MG/2 ML VIAL IV PUSH SCH (08:53)
[2017-07-08] MEDS: SODIUM CHLORIDE 0.9% FLUSH 10 ML FLUSH IV FLUSH SCH ×2 (08:53→20:08)
--- NOTE | 2017-07-08 10:46 | HHI.PR ---
Subjective Remarks Follow up for anemia, splenic torsion s/p splenectomy in patient with a history of IVDU. Patient complains of persistent abdominal pain. No fever, chills. Objective Vitals Vital Signs Date Time Temp Pulse Resp B/P (MAP) Pulse Ox O2 Delivery O2 Flow Rate FiO2 07/08/17 08:00 96.1 82 17 111/75 (87) 98 07/08/17 00:00 97.4 84 18 103/64 (77) 98 07/07/17 20:00 97.9 86 18 110/68 (82) 96 07/07/17 16:00 98.4 83 20 113/73 (86) 96 07/07/17 12:00 97.3 80 18 123/89 (100) 94 I/O 07/07/17 07/07/17 07/07/17 07/08/17 07/08/17 07/08/17 06:59 14:59 22:59 06:59 14:59 22:59 Intake Total 250 ml 885 ml 1200 ml Output Total 1450 ml 2785 ml 90 ml Balance -1200 ml 885 ml -1585 ml -90 ml Intake Oral 1200 ml IV Total 250 ml 885 ml Output Urine Total 1450 ml 1200 ml Drainage Total 1585 ml 90 ml # Bowel Movements 0 Result Diagram: 07/06/17 1230 07/06/17 1230 Imaging Last Impressions Chest X-Ray 07/04/17 0000 Signed Impressions: Service Date/Time: Tuesday, July 04, 2017 09:37 - CONCLUSION: No acute cardiopulmonary disease. K. Jair Manrique MD Abdomen/Pelvis CT 07/04/17 0000 Signed Impressions: Service Date/Time: Tuesday, July 04, 2017 05:40 - CONCLUSION: 1. Enlarged inferiorly displaced spleen with whirling splenic vasculature. Splenic artery is patent although there is only a very subtle small amount of residual splenic enhancement. The spleen is largely not enhancing consistent with splenic infarction. 2. Persistent trace isodense ascites which may reflect hemoperitoneum.. Art Noel MD Objective Remarks GENERAL: Alert, Oriented x 3, NAD. IJ line in place, leaked when flushed. SKIN: Warm and dry. HEAD: Normocephalic. EYES: No scleral icterus. No injection or drainage. NECK: Supple, trachea midline. No JVD or lymphadenopathy. CARDIOVASCULAR: Regular rate and rhythm without murmurs, gallops, or rubs. RESPIRATORY: Breath sounds equal bilaterally. No accessory muscle use. GASTROINTESTINAL: Abdomen somewhat tender to palpation, s/p splenectomy. MUSCULOSKELETAL: No cyanosis, or edema. BACK: Nontender without obvious deformity. No CVA tenderness. Procedures s/p Splenectomy A/P Problem List: (1) Splenic infarction ICD Code: D73.5 - Infarction of spleen (2) IVDU (intravenous drug user) ICD Code: F19.90 - IVDU (intravenous drug user) Status: Chronic Assessment and Plan Ms. Greenberg is a 36 year old female with a history of Hep C, IVDU, endocarditis last year who presented to the ED with 2 day duration of abdominal pain and associated N/V. CT abd/Pelvis shows splenic infarction. Patient underwent emergent splenectomy for engorged, infarcted spleen. She was monitored in the ICU and received one unit of blood due to Hgb 7.2. Patient was normotensive in the ICU. She was subsequently transferred to the hospitalist service. - Acute splenic infarction - s/p emergent splenectomy - Patient has received influenza vaccine. - While 14 days after splenectomy would be preferable to give pneumococcal vaccine, we will likely give vaccine on the day of discharge. - Will give PCV13 (Prevnar 13) on the day of discharge and 8 weeks later, patient needs to get PPSV23 (Pneumovax 23) and thereafter every 5 years. - Patient is currently on Augmentin PO. Blood cx growing non-anthrax bacillus which is likely a contamination. - Anemia - likely due to acute blood loss. - Patient received one unit. - Repeat H&H shows Hgb > 10. - No further blood transfusion unless Hgb < 7.0. - Hep C - IVDU - Counselled patient. - Outpatient follow up for Hep C. Full code. SCDs. When cleared by General surgery, patient can be discharged. Patient will try to find a place to stay (friends/family). Andrew Suresh DO Jul 08, 2017 10:46 am
[2017-07-08 12:00] VITALS: BP 111/73; PULSE 82; RESP 17; TEMP 97.5; O2SAT 98
--- NOTE | 2017-07-08 12:08 | HHI.PR ---
Subjective Subjective Notes feels better, tolerating PO Objective Vitals/I&O Vital Signs Date Time Temp Pulse Resp B/P (MAP) Pulse Ox O2 Delivery O2 Flow Rate FiO2 07/08/17 08:00 96.1 82 17 111/75 (87) 98 07/05/17 07:00 Room Air 07/04/17 08:56 6 Labs Laboratory Tests Test 07/07/17 16:00 Date/Time Source Procedure Growth Status 07/04/17 05:36 Blood Peripheral Aerobic Blood Culture - Preliminary NO GROWTH IN 4 DAYS Resulted 07/04/17 05:36 Anaerobic Blood Culture - Final Bacillus Species Not Anthracis Resulted 07/04/17 03:10 Urine Catheterized Urine Urine Culture - Final NO GROWTH IN 48 HOURS. Complete Disinhibition Score: 21.00 Aggression Score: 21.00 Lability Score: 23.24 Agitated Behavior Total Score: 21 Abdomen: Non-distended, Post-op tenderness Narrative Exam KIRK with clear fluid A/P Assessment and Plan 36yo female hx IV drug abuse s/p splenectomy for torsion, stable postop. tolerating PO continue IV PRN and PO pain meds follow KIRK drain output, possible pancreatic fistulae vs post op asitics will need triple VAC for splenectomy in 2-3 weeks after surgery Yaya Aleman MD Jul 08, 2017 12:08
[2017-07-08 16:00] VITALS: BP 110/70; PULSE 84; RESP 17; TEMP 98.3; O2SAT 98
[2017-07-08 20:00] VITALS: BP 122/76; PULSE 87; RESP 16; TEMP 97.7; O2SAT 97
[2017-07-08] MEDS: FAMOTIDINE 20 MG TAB PO SCH (20:08)
[2017-07-08] MEDS: LORazepam 2 MG/ML VIAL IV PUSH PRN (20:58)
[2017-07-09 00:35] VITALS: BP 101/65; PULSE 80; RESP 16; TEMP 96.4; O2SAT 96
[2017-07-09] MEDS: MORPHINE SULFATE 2 MG/ML INJ IV PUSH PRN ×6 (00:55→21:23)
[2017-07-09] MEDS: oxyCODONE/ACETAMINOPHEN 7.5 MG/325 MG TAB PO PRN ×5 (02:38→20:23)
[2017-07-09] MEDS: CHLORHEXIDINE GLUCONATE 2 % 1 PACK (2 CLOTHS) TOP SCH (04:00)
[2017-07-09] MEDS: HEPARIN SODIUM - SQ 10,000 UNITS/ML VIAL SQ SCH ×3 (05:08→21:22)
[2017-07-09 08:00] VITALS: BP 103/68; PULSE 82; RESP 16; TEMP 97.3; O2SAT 95
[2017-07-09] MEDS: FAMOTIDINE 20 MG TAB PO SCH ×2 (09:17→20:23)
[2017-07-09] MEDS: AMOXICILLIN/CLAVULANATE K 875 MG TAB PO SCH ×2 (09:17→20:22)
[2017-07-09] MEDS: DOCUSATE SODIUM 50 MG/SENNA 8.6 MG TAB PO SCH ×2 (09:17→20:23)
[2017-07-09] MEDS: SODIUM CHLORIDE 0.9% FLUSH 10 ML FLUSH IV FLUSH SCH ×2 (09:17→20:23)
[2017-07-09 12:00] VITALS: BP 100/66; PULSE 82; RESP 16; TEMP 98.7; O2SAT 97
--- NOTE | 2017-07-09 14:17 | HHI.PR ---
Subjective Subjective Notes no new c/o Objective Vitals/I&O Vital Signs Date Time Temp Pulse Resp B/P (MAP) Pulse Ox O2 Delivery O2 Flow Rate FiO2 07/09/17 12:00 98.7 82 16 100/66 (77) 97 07/05/17 07:00 Room Air Labs Date/Time Source Procedure Growth Status 07/04/17 05:36 Blood Peripheral Aerobic Blood Culture - Final NO GROWTH IN 5 DAYS Complete 07/04/17 05:36 Anaerobic Blood Culture - Final Bacillus Species Not Anthracis Complete 07/04/17 03:10 Urine Catheterized Urine Urine Culture - Final NO GROWTH IN 48 HOURS. Complete Disinhibition Score: 21.00 Aggression Score: 21.00 Lability Score: 23.24 Agitated Behavior Total Score: 21 Abdomen: Non-distended, Post-op tenderness Narrative Exam KIRK with clear fluid A/P Assessment and Plan 36yo female hx IV drug abuse s/p splenectomy for torsion, stable postop. tolerating PO continue IV PRN and PO pain meds follow KIRK drain output minimal clear, doubt pancreatic issue, will DC tomorrow will need triple VAC for splenectomy prior to DC can possibly Dc home next 24-36h Yaya Aleman MD Jul 09, 2017 14:17
[2017-07-09 16:00] VITALS: BP 105/69; PULSE 88; RESP 17; TEMP 96.4; O2SAT 97
--- NOTE | 2017-07-09 16:00 | HHI.PR ---
Subjective Remarks pain controlled davida drain in place afebrile tolerating diet Objective Vitals Vital Signs Date Time Temp Pulse Resp B/P (MAP) Pulse Ox O2 Delivery O2 Flow Rate FiO2 07/09/17 12:00 98.7 82 16 100/66 (77) 97 07/09/17 08:00 97.3 82 16 103/68 (80) 95 07/09/17 05:13 16 07/09/17 03:38 16 07/09/17 00:35 96.4 80 16 101/65 (77) 96 07/08/17 20:00 97.7 87 16 122/76 (91) 97 07/08/17 16:00 98.3 84 17 110/70 (83) 98 I/O 07/08/17 07/08/17 07/08/17 07/09/17 07/09/17 07/09/17 07:00 15:00 23:00 07:00 15:00 23:00 Intake Total 1440 ml 780 ml Output Total 90 ml 50 ml 30 ml 5 ml Balance -90 ml -50 ml 1410 ml 775 ml Intake Oral 1440 ml 780 ml Drainage Total 90 ml 50 ml 30 ml 5 ml # Voids 2 3 # Bowel Movements 0 Result Diagram: 07/06/17 1230 07/06/17 1230 Imaging Last Impressions Chest X-Ray 07/04/17 0000 Signed Impressions: Service Date/Time: Tuesday, July 04, 2017 09:37 - CONCLUSION: No acute cardiopulmonary disease. Eunice Manrique MD Abdomen/Pelvis CT 07/04/17 0000 Signed Impressions: Service Date/Time: Tuesday, July 04, 2017 05:40 - CONCLUSION: 1. Enlarged inferiorly displaced spleen with whirling splenic vasculature. Splenic artery is patent although there is only a very subtle small amount of residual splenic enhancement. The spleen is largely not enhancing consistent with splenic infarction. 2. Persistent trace isodense ascites which may reflect hemoperitoneum.. Art Noel MD Objective Remarks GENERAL: Alert, Oriented x 3, NAD. IJ line in place, leaked when flushed. SKIN: Warm and dry. HEAD: Normocephalic. EYES: No scleral icterus. No injection or drainage. NECK: Supple, trachea midline. No JVD or lymphadenopathy. CARDIOVASCULAR: Regular rate and rhythm without murmurs, gallops, or rubs. RESPIRATORY: Breath sounds equal bilaterally. No accessory muscle use. GASTROINTESTINAL: Abdomen somewhat tender to palpation, s/p splenectomy. MUSCULOSKELETAL: No cyanosis, or edema. BACK: Nontender without obvious deformity. No CVA tenderness. Procedures s/p Splenectomy Medications and IVs Current Medications Medications (Trade) Dose Ordered Sig/Luda Route Start Time Stop Time Status Last Admin (Tylenol) 650 mg Q6H PRN PO 07/04/17 05:45 (Ativan Inj) 1 mg Q1H PRN IV PUSH 07/04/17 05:45 07/08/17 20:58 (Zofran Inj) 4 mg Q6H PRN IV PUSH 07/04/17 05:45 07/07/17 01:34 (Ambien) 5 mg HS PRN PO 07/04/17 05:45 (Duoneb Neb) 1 ampule Q2HR NEB PRN INH 07/04/17 05:45 (Heparin Inj) 5,000 units Q8H SQ 07/05/17 06:00 07/09/17 13:19 Miscellaneous Information 1 [id number] XX 07/04/17 05:45 (Chlorhexidine 2% Cloth) 3 pack Taper DAILY@04 TOP 07/05/17 04:00 07/01/18 03:59 (Chlorhexidine 2% Cloth) 3 pack UNSCH PRN TOP 07/04/17 05:45 (Mary-Colace) 1 tab BID PO 07/04/17 09:00 07/09/17 09:17 (Milk Of Magnesia Liq) 30 ml Q12H PRN PO 07/04/17 05:45 (Senokot) 17.2 mg Q12H PRN PO 07/04/17 05:45 (Dulcolax Supp) 10 mg DAILY PRN RECTAL 07/04/17 05:45 (Lactulose Liq) 30 ml DAILY PRN PO 07/04/17 05:45 Potassium Chloride/Dextrose/ Sod Cl 1,000 ml @ 0 mls/hr [id number] IV 07/04/17 08:52 07/06/17 23:29 (NS Flush) 2 ml UNSCH PRN IV FLUSH 07/04/17 09:00 07/08/17 00:13 (NS Flush) 2 ml BID IV FLUSH 07/04/17 09:00 07/09/17 09:17 (Benadryl Inj) 25 mg Q6H PRN IV PUSH 07/04/17 09:00 (Morphine Inj) 2 mg Q3H PRN IV PUSH 07/07/17 09:45 07/09/17 13:19 (Percocet 7.5-325 Mg) 1 tab Q4H PRN PO 07/07/17 09:45 (Percocet 7.5-325 Mg) 2 tab Q4H PRN PO 07/07/17 09:45 07/09/17 11:17 (Augmentin) 875 mg Q12HR PO 07/07/17 21:00 07/14/17 20:59 07/09/17 09:17 (Pepcid) 20 mg BID PO 07/08/17 21:00 07/09/17 09:17 A/P Problem List: (1) Splenic infarction ICD Code: D73.5 - Infarction of spleen (2) IVDU (intravenous drug user) ICD Code: F19.90 - IVDU (intravenous drug user) Status: Chronic Assessment and Plan Ms. Greenberg is a 36 year old female with a history of Hep C, IVDU, endocarditis last year who presented to the ED with 2 day duration of abdominal pain and associated N/V. CT abd/Pelvis shows splenic infarction. Patient underwent emergent splenectomy for engorged, infarcted spleen. She was monitored in the ICU and received one unit of blood due to Hgb 7.2. Patient was normotensive in the ICU. She was subsequently transferred to the hospitalist service. - Acute splenic infarction - s/p emergent splenectomy - Patient has received influenza vaccine. - While 14 days after splenectomy would be preferable to give pneumococcal vaccine, we will likely give vaccine on the day of discharge. - Will give PCV13 (Prevnar 13) on the day of discharge and 8 weeks later, patient needs to get PPSV23 (Pneumovax 23) and thereafter every 5 years. - Patient is currently on Augmentin PO. Blood cx growing non-anthrax bacillus which is likely a contamination. - Anemia - likely due to acute blood loss. - Patient received one unit. - Repeat H&H shows Hgb > 10. - No further blood transfusion unless Hgb < 7.0. - Hep C - IVDU - Counselled patient. - Outpatient follow up for Hep C. Full code. SCDs. Discharge Planning DC pending GS clearance. Darius Berrios MD Jul 09, 2017 16:00
[2017-07-09 16:25] LABS: AMYLASE BODY FLUID 61 U/L; AMYLASE BODY FLUID TYPE PERITONEAL
[2017-07-09 20:00] VITALS: BP 112/63; PULSE 79; RESP 16; TEMP 98.6; O2SAT 96
[2017-07-10] MEDS: oxyCODONE/ACETAMINOPHEN 7.5 MG/325 MG TAB PO PRN ×5 (00:20→18:29)
[2017-07-10 00:46] VITALS: BP 106/59; PULSE 86; RESP 17; TEMP 98.9; O2SAT 98
[2017-07-10] MEDS: MORPHINE SULFATE 2 MG/ML INJ IV PUSH PRN ×6 (01:23→18:46)
[2017-07-10] MEDS: CHLORHEXIDINE GLUCONATE 2 % 1 PACK (2 CLOTHS) TOP SCH (04:00)
[2017-07-10] MEDS: HEPARIN SODIUM - SQ 10,000 UNITS/ML VIAL SQ SCH ×2 (05:09→12:53)
[2017-07-10 08:00] VITALS: BP 113/68; PULSE 74; RESP 16; TEMP 97.5; O2SAT 97
[2017-07-10] MEDS: SODIUM CHLORIDE 0.9% FLUSH 10 ML FLUSH IV FLUSH SCH (08:25)
[2017-07-10] MEDS: DOCUSATE SODIUM 50 MG/SENNA 8.6 MG TAB PO SCH (08:25)
[2017-07-10] MEDS: FAMOTIDINE 20 MG TAB PO SCH (08:25)
[2017-07-10] MEDS: AMOXICILLIN/CLAVULANATE K 875 MG TAB PO SCH (08:25)
[2017-07-10 12:00] VITALS: BP 115/73; PULSE 75; RESP 17; TEMP 97.8; O2SAT 97
--- NOTE | 2017-07-10 13:39 | HHI.PR ---
Subjective Subjective Notes feels better, tolerating PO, drain out, wants to go home Objective Vitals/I&O Vital Signs Date Time Temp Pulse Resp B/P (MAP) Pulse Ox O2 Delivery O2 Flow Rate FiO2 07/10/17 12:00 97.8 75 17 115/73 (87) 97 Labs Date/Time Source Procedure Growth Status 07/04/17 05:36 Blood Peripheral Aerobic Blood Culture - Final NO GROWTH IN 5 DAYS Complete 07/04/17 05:36 Anaerobic Blood Culture - Final Bacillus Species Not Anthracis Complete 07/04/17 03:10 Urine Catheterized Urine Urine Culture - Final NO GROWTH IN 48 HOURS. Complete Disinhibition Score: 21.00 Aggression Score: 21.00 Lability Score: 23.24 Agitated Behavior Total Score: 21 Abdomen: Non-distended, Post-op tenderness Narrative Exam KIRK with clear fluid A/P Assessment and Plan 36yo female hx IV drug abuse s/p splenectomy for torsion, stable postop. tolerating PO KIRK out casi out vaccines ordered ok to DC home today, fu with me in 1 week regular diet, ok to shower Yaya Aleman MD Jul 10, 2017 13:39
[2017-07-10] MEDS ORDERED: PNEUMOCOCCAL POLYVALENT INJ 25 MCG/0.5 ML SYR IM ONE (13:45)
[2017-07-10] MEDS ORDERED: MENINGOCOCCAL CONJUGATE VACCINE 0.5 ML VIAL IM ONE (13:45)
[2017-07-10 16:00] VITALS: BP 114/76; PULSE 79; RESP 17; TEMP 98.1; O2SAT 98
[2017-07-10] MEDS ORDERED: PERC5TAB12 PO (17:07)
--- NOTE | 2017-07-10 17:09 | HHI.DCPOC ---
Discharge Care Plan Diagnosis: (1) Acute blood loss anemia (2) Splenic infarction (3) Hepatitis C (4) IVDU (intravenous drug user) Goals to Promote Your Health * To prevent worsening of your condition and complications * To maintain your health at the optimal level Directions to Meet Your Goals Take your medications as prescribed Follow your dietary instruction Follow activity as directed Keep your appointments as scheduled Take your immunizations and boosters as scheduled If your symptoms worsen call your PCP, if no PCP go to Urgent Care Center or Emergency Room Smoking is Dangerous to Your Health. Avoid second hand smoke Call the 24-hour hour crisis hotline for domestic abuse at Darius Berrios MD Jul 10, 2017 17:09
[2017-07-10] MEDS: LORazepam 2 MG/ML VIAL IV PUSH PRN (18:29)
== END 2017-07-10 19:34 | disposition home or self-care (01) | DRG 799 ==
LOC: NEPE 01:53 → NEDA 05:35 → N03A 06:15 → N07B 07-05 18:24
PROVIDERS: ADMIT Internal Medicine Critical Care Medicine; ATTEND Hospitalist
PROC: 0DTJ0ZZ Resection of Appendix, Open Approach (ICD-10-PCS; 2017-07-04)
PROC: 3E1M38Z Irrigation of Peritoneal Cavity using Irrigating Substance, Percutaneous Approach (ICD-10-PCS; 2017-07-04)
PROC: 30233N1 Transfusion of Nonautologous Red Blood Cells into Peripheral Vein, Percutaneous Approach (ICD-10-PCS; 2017-07-04)
PROC: 07TP0ZZ Resection of Spleen, Open Approach (ICD-10-PCS; principal; 2017-07-04 07:30)
DX: D73.5 Infarction of spleen (principal); K66.1 Hemoperitoneum; K65.9 Peritonitis, unspecified; R18.8 Other ascites; D62 Acute posthemorrhagic anemia; B19.20 Unspecified viral hepatitis C without hepatic coma; F17.210 Nicotine dependence, cigarettes, uncomplicated; Z88.2 Allergy status to sulfonamides; Z88.6 Allergy status to analgesic agent; Z88.1 Allergy status to other antibiotic agents; Z91.040 Latex allergy status; D73.89 Other diseases of spleen; F14.10 Cocaine abuse, uncomplicated; Z59.0 Homelessness; Z23 Encounter for immunization
CPT/HCPCS: 36430; 71045; 74176; 74177; 80053; 80202; 80307; 81001; 82150; 82550; 82552; 82565; 83605; 83690; 83735; 84100; 84702; 84703; 85007; 85014; 85018; 85025; 85027; 85610; 85730; 86077; 86850; 86870; 86900; 86901; 86902; 86920; 86922; 87040; 87086; 87205; 87641; 88304; 88305; 88309; 90686; 94150; 99291; J0131; J0690; J1100; J1644; J2060; J2250; J2270; J2405; J2543; J3010; J3370; J3480; J7030; J7050; P9016; Q2038; Q9967